=== PATIENT | male | born 1980 | race Caucasian/White ===

== ENCOUNTER 2016-10-21 16:18 | Inpatient (IN) | payer MEDICARE, MEDICAID, OTHER ==
[2016-10-21] MEDS ORDERED: Sodium Chloride 0.9% 1,000 ML IV STA (17:45)
[2016-10-21 18:18] LABS: HEMATOCRIT 46.2 % (42.0-52.0); MEAN CELL VOLUME 80.2 fL (80.0-105.0); MEAN CORPUSCULAR HEMOGLOBIN 29.3 pg (25.0-35.0); MEAN CORPUSCULAR HGB CONC 36.6 g/dl (31.0-37.0); MEAN PLATELET VOLUME 12.3 fl (7.0-11.0); PLATELET COUNT 269 10^3/uL (120.0-450.0); WHITE BLOOD COUNT 21.8 10^3/ul (4.5-11.0)
[2016-10-21 18:23] LABS: ADD MANUAL DIFF? YES
[2016-10-21 18:27] LABS: ALB/GLOB RATIO 1.4 (1.1-1.8); BILIRUBIN,TOTAL 0.8 mg/dL (0.2-1.3); CALCIUM 9.9 mg/dL (8.4-10.5); TOTAL PROTEIN 8.5 g/dL (5.8-8.3)
[2016-10-21] MEDS ORDERED: Insulin Reg-MEDIUM-Coverage IV STA (18:45)
--- NOTE | 2016-10-21 19:03 | ED PDOC ---
Arrival/HPI - General Chief Complaint: GI Problem Time Seen by Provider: 10/21/16 17:32 Historian: Patient - History of Present Illness Narrative History of Present Illness (Text): 10/21/16 19:00 36yo male with PMHx IDDM present with complaint of generalized bodyache, nausea , vomiting x 3days. States he did not take one of his insulin today, because he was too weak to stand up. He denies abdominal pain, dizziness, chest pain, SOB, diarrhea, constipation, sick contact, any other complaint. Past Medical History - Provider Review Nursing Documentation Reviewed: Yes - Past History Past History: Non-Contributing - Infectious Disease Hx of Infectious Diseases: None - Tetanus Immunization Tetanus Immunization: Unknown - Cardiac Hx Hypertension: Yes - Pulmonary Hx Respiratory Disorders: No Hx Asthma: No Hx Bronchitis: No Hx Chronic Obstructive Pulmonary Disease (COPD): No Hx Emphysema: No - Neurological Hx Neurological Disorder: No Hx Alzheimer's Disease: No HX Cerebrovascular Accident: No Hx Dementia: No Hx Migraine: No Hx Parkinson's Disease: No Hx Seizures: No Hx Transient Ischemic Attacks (TIA): No - HEENT Hx HEENT Disorder: No Hx Blind: No Hx Cataracts: No Hx Deafness: No Hx Difficulty Chewing: No Hx Epistaxis: No Hx Glaucoma: No Hx Macular Degeneration: No - Renal Hx Renal Disorder: No Hx Renal Failure: No - Endocrine/Metabolic Hx Diabetes Mellitus Type 1: Yes Hx Diabetes Mellitus Type 2: Yes Hx Hyperthyroidism: No Hx Hypothyroidism: No - Hematological/Oncological Hx Blood Disorders: No Hx Anemia: No Hx Cancer: No Hx Hepatitis A: No Hx Hepatitis B: No Hx Hepatitis C: No - Integumentary Hx Dermatological Disorder: No Hx Basal Cell Carcinoma: No Hx Eczema: No Hx Melanoma: No Hx Psoriasis: No Hx Squamous Cell Carcinoma: No - Musculoskeletal/Rheumatological Hx Musculoskeletal Disorders: No Hx Arthritis: No - Gastrointestinal Hx Gastrointestinal Disorders: No Hx Crohn's Disease: No Hx Diverticulitis: No Hx Gastroesophageal Reflux: No Hx Gastrointestinal Ulcer: No Hx Liver Failure: No - Genitourinary/Gynecological Hx Genitourinary Disorders: No Hx Hematuria: No Hx Incontinence: No Hx Prostate Problems: No Hx Sexually Transmitted Diseases: No Hx Urinary Tract Infection: No - Psychiatric Hx Psychophysiologic Disorder: No Hx Depression: No Hx Emotional Abuse: No Hx Physical Abuse: No Hx Substance Use: Yes - Past Surgical History Past Surgical History: No Previous - Surgical History Hx Amputation: No Hx Appendectomy: No Hx Cardiac Catheterization: No Hx Cholecystectomy: No Hx Coronary Stent: No Hx Gastric Bypass Surgery: No Hx Hysterectomy: No Hx Joint Replacement: No Hx Kidney Transplant: No Hx Liver Transplant: No Hx Mastectomy: No Hx Open Heart Surgery: No Hx Orthopedic Surgery: No Hx Splenectomy: No Hx Valve Replacement: No - Anesthesia Hx Anesthesia: No Hx Anesthesia Reactions: No Hx Malignant Hyperthermia: No - Suicidal Assessment Feels Threatened In Home Enviroment: No Family/Social History - Physician Review Nursing Documentation Reviewed: Yes Family/Social History: Unknown Family HX Smoking Status: Heavy Smoker > 10 Cigarettes Daily Hx Alcohol Use: Yes Frequency of alcohol use: Socially Hx Substance Use: Yes Substance used: MARIJUANA Hx Substance Use Treatment: No Allergies/Home Meds Allergies/Adverse Reactions: Allergies No Known Allergies Allergy (Verified 09/24/14 18:43) Home Medications: Home Meds Medication Instructions Recorded Confirmed Aspirin 81 mg PO DAILY 06/16/13 10/22/14 Insulin Glargine,Hum.rec.anlog 30 units SC HS 06/16/13 10/22/14 [Lantus] Metformin HCl 1,000 mg PO BID 06/16/13 10/22/14 Insulin Human NPH/Reg [HumuLIN 25 units SC BID 07/28/14 10/22/14 70/30 (NPH/Reg)] Gabapentin [Gabapentin] 300 mg PO BID 10/22/14 10/22/14 Review of Systems - Physician Review All systems were reviewed & negative as marked: Yes - Review of Systems Constitutional: Fatigue Eyes: Normal ENT: Normal Respiratory: Normal Cardiovascular: Normal Gastrointestinal: Nausea, Vomiting. absent: Abdominal Pain, Constipation, Diarrhea Genitourinary Male: Normal Musculoskeletal: Normal Skin: Normal Neurological: Normal Endocrine: Normal Hemo/Lymphatic: Normal Psychiatric: Normal Physical Exam Vital Signs Reviewed: Yes Vital Signs Temp Pulse Resp BP Pulse Ox 10/21/16 21:40 72 17 150/88 98 10/21/16 19:20 64 16 136/66 100 10/21/16 18:39 82 18 145/89 97 10/21/16 18:00 82 20 141/77 97 10/21/16 17:10 97.7 F 103 H 18 165/100 H 100 Temperature: Afebrile Blood Pressure: Hypertensive Pulse: Tachycardic Respiratory Rate: Normal Appearance: Positive for: Non-Toxic, Comfortable, Ill-Appearing Pain Distress: None Mental Status: Positive for: Alert and Oriented X 3 - Systems Exam Head: Present: Atraumatic, Normocephalic Pupils: Present: PERRL Extroacular Muscles: Present: EOMI Conjunctiva: Present: Normal Mouth: Present: Moist Mucous Membranes Neck: Present: Normal Range of Motion Respiratory/Chest: Present: Clear to Auscultation, Good Air Exchange. No: Respiratory Distress, Accessory Muscle Use Cardiovascular: Present: Regular Rate and Rhythm, Normal S1, S2. No: Murmurs Abdomen: Present: Normal Bowel Sounds. No: Tenderness, Distention, Peritoneal Signs, Rebound, Guarding, McBurney's Point Tender, Rovsing's Sign Present Back: Present: Normal Inspection Upper Extremity: Present: Normal Inspection. No: Cyanosis, Edema Lower Extremity: Present: Normal Inspection. No: Edema Neurological: Present: GCS=15, CN II-XII Intact, Speech Normal Skin: Present: Warm, Dry, Normal Color. No: Rashes Psychiatric: Present: Alert, Oriented x 3, Normal Insight, Normal Concentration Medical Decision Making ED Course and Treatment: 10/22/16 03:25 PT presented for stated history. He was ill appearing in ED. Rapid flu was negative. He have hyperglycemia and a gap on the lab. He was hydrated and insulin was given. He have leukocytosis with a band and the source was not known. Bld culture pending. He was admitted for DKA and leukocytosis. Case was AKILAH Burciaga and he accepted pt to his service. Case was also AKILAH Montague and he saw pt in ED EKG Sinus rhythm @68bpm with no ST changes as read by me. Chest xray NAD - Lab Interpretations Lab Results: 10/21/16 18:00 10/21/16 18:00 Lab Results 10/21/16 20:00: Lactic Acid 2.2 H, Urine Color Straw, Urine Appearance Clear, Urine pH 6.0, Ur Specific [place] 1.015, Urine Protein Negative, Urine Glucose ( UA) >=1000, Urine Ketones >=80, Urine Blood Small H, Urine Nitrate Negative, Urine Bilirubin Negative, Urine Urobilinogen 0.2, Ur Leukocyte Esterase Negative , Urine RBC 2 - 5, Urine WBC 0 - 2, Ur Epithelial Cells 0 - 2, Urine Bacteria Small 03/20/17 19:20: Grp A Beta Strep Ag Negative 10/21/16 19:10: pCO2 18 L*, pO2 122.0 H, HCO3 6.9 L*, ABG pH 7.19 L*, ABG Total CO2 7.5 L, ABG O2 Saturation 99.5 H, ABG O2 Content 20.5, ABG Base Excess -19.0 L, ABG Hemoglobin 15.1, ABG Carboxyhemoglobin 2.3 H, POC ABG HHb (Measured) 0.5 , ABG Methemoglobin 1.4, ABG O2 Capacity 20.6, Hgb O2 Saturation 95.9, FiO2 21.0 10/21/16 18:00: WBC 21.8 H D, RBC 5.76, Hgb 16.9, Hct 46.2, MCV 80.2, MCH 29.3, MCHC 36.6, RDW 13.0, Plt Count 269, MPV 12.3 H, Neutrophils % (Manual) 86 H, Band Neutrophils % 4 H, Lymphocytes % (Manual) 4 L, Atypical Lymphs % 2 H, Monocytes % (Manual) 4, Platelet Evaluation Normal, Sodium 125 L, Potassium 6.2 H* D, Chloride 89 L, Carbon Dioxide 8 L D, Anion Gap 34 H, BUN 48 H, Creatinine 2.0 H, Est GFR ( Amer) 46, Est GFR (Non-Af Amer) 38, Random Glucose 548 H *, Calcium 9.9, Total Bilirubin 0.8, AST 25, ALT 27, Alkaline Phosphatase 147 H , Lactate Dehydrogenase 631, Total Creatine Kinase 129, Troponin I < 0.01, Total Protein 8.5 H, Albumin 4.9 H, Globulin 3.6, Albumin/Globulin Ratio 1.4, Influenza Typ A,B (EIA) Negative for flu a/b 10/21/16 00:15: PT 12.0 H, INR 1.11 H, APTT 26.9 - RAD Interpretation Radiology Orders: 10/21/16 19:09 CHEST PORTABLE [RAD] Stat - Medication Orders Current Medication Orders: Albuterol/Ipratropium (Duoneb 3 Mg/0.5 Mg (3 Ml) Ud) 3 ml IH [id number] MEGAN Stop: 10/29/16 02:01 Last Admin: 10/21/16 22:29 Dose: 3 ML Aspirin (Ecotrin) 81 mg PO DAILY [facility] Enoxaparin Sodium (Lovenox) 40 mg SC DAILY MEGAN PRN Reason: Protocol Last Admin: 10/22/16 00:39 Dose: 40 MG Protocol for PTT Monitoring Document 10/22/16 00:39 TAJ (Rec: 10/22/16 00:[address] [id number]) Protocol Protocol for PTT Monitoring Treatment adjusted per protocol (situation) Subcutaneous Administrations Document 10/22/16 00:39 TAJ (Rec: 10/22/16 00:[address] [facility] [address] [id number]) Injection Site MAR Injection Site Right Abdomen Charges for Administration # of Subcutaneous Administrations 1 Gabapentin (Neurontin) 300 mg PO BID [facility] Sodium Chloride (Sodium Chloride 0.9%) 1,000 mls @ 100 mls/hr IV .Q10H MEGAN Insulin Human Regular 100 (units/ Sodium Chloride) 100 mls @ 4 mls/hr IV .Q24H PRN; Protocol; 4 UNITS/HR PRN Reason: TITRATE PER PROTOCOL Last Titration: 10/22/16 02:42 Dose: 2 UNITS/HR Titration Intervention Document 10/22/16 02:42 TAJ (Rec: 10/22/16 02:[address] [address] [id number]) Titration Dosing Titration Dose 2 IV Rate 2 Intake/Decrease Decrease Piperacillin Sod/Tazobactam Sod (Zosyn 2.25 Gm In 0.9% 100 Ml) 100 mls @ 100 mls/hr IVPB Q6 [facility] PRN Reason: Protocol Stop: 10/28/16 00:01 Metoclopramide HCl (Reglan) 10 mg IVP ACHS [facility] Last Admin: 10/21/16 22:29 Dose: 10 MG IVP Administration Document 10/21/16 22:29 YP (Rec: 10/21/16 22:29 [id number] Charges for Administration # of IVP Administrations 1 Nicotine (Nicoderm Cq) 1 patch TD DAILY [facility] Ondansetron HCl (Zofran Inj) 4 mg IVP Q4H PRN PRN Reason: Nausea/Vomiting Pantoprazole Sodium (Protonix Inj) 40 mg IVP Q12 [facility] Last Admin: 10/21/16 22:29 Dose: 40 MG IVP Administration Document 10/21/16 22:29 YP (Rec: 10/21/16 22:29 [id number][facility] Charges for Administration # of IVP Administrations 1 Discontinued Medications Acetaminophen (Tylenol 325mg Tab) 650 mg PO STAT STA Stop: 10/21/16 19:59 Last Admin: 10/21/16 20:22 Dose: 650 MG MAR Pain/Vitals Document 10/21/16 20:22 YP (Rec: 10/21/16 20:22 [id number][facility] Pain Reassessment Is This A Pain ReAssessment? Yes Sleep Is patient sleeping during reassessment? No Presence of Pain Presence of Pain Yes Calcium Gluconate (Calcium Gluconate Iv) 1,000 mg IVP STAT STA Stop: 10/21/16 20:54 Last Admin: 10/21/16 21:22 Dose: 1,000 MG IVP Administration Document 10/21/16 21:22 YP (Rec: 10/21/16 21:22 [id number][facility] Charges for Administration # of IVP Administrations 1 Dextrose (Dextrose 50% Inj) Confirm Administered Dose 50 ml .ROUTE .STK-MED ONE Stop: 10/21/16 23:32 Last Admin: 10/21/16 23:41 Dose: Home Med (*Refrigerator Open) Confirm Administered Dose 1 unit XX .STK-MED ONE Stop: 10/21/16 19:26 Sodium Chloride (Sodium Chloride 0.9%) 1,000 mls @ 999 mls/hr IV .Q1H1M STA Stop: 10/21/16 18:45 Last Admin: 10/21/16 18:00 Dose: 999 MLS/HR eMAR Start Stop Document 10/21/16 18:00 SZA (Rec: 10/21/16 18:09 SZA [id number]) Intravenous Solution Start Date 10/21/16 Start Time 18:00 End Date 10/21/16 End time 19:00 Total Infusion Time 60 Sodium Chloride (Sodium Chloride 0.9%) 1,000 mls @ 999 mls/hr IV .Q1H1M MEGAN Stop: 10/22/16 02:00 Last Admin: 10/22/16 00:00 Dose: 999 MLS/HR eMAR Start Stop Document 10/22/16 00:00 TAJ (Rec: 10/22/16 00:42 TAJ [id number]) Intravenous Solution Start Date 10/22/16 Start Time 00:00 End Date 10/22/16 Insulin Human Regular 100 (units/ Sodium Chloride) 100 mls @ 0 mls/hr IV .Q0M PRN; Protocol; Per Protocol PRN Reason: TITRATE PER MD ORDER Sodium Chloride (Sodium Chloride 0.9%) 1,000 mls @ 150 mls/hr IV .Q6H40M [facility] Last Admin: 10/21/16 21:08 Dose: Piperacillin Sod/Tazobactam Sod (Zosyn 2.25 Gm In 0.9% 100 Ml) 100 mls @ 100 mls/hr IVPB Q6 MEGAN PRN Reason: Protocol Stop: 10/22/16 06:59 Insulin Human Regular 100 (units/ Sodium Chloride) 100 mls @ 4 mls/hr IV .Q24H PRN; Protocol; Per Protocol PRN Reason: TITRATE PER MD ORDER Insulin Human Regular (Humulin R Med) 10 units IV ONCE STA PRN Reason: Protocol Stop: 10/21/16 18:46 Last Admin: 10/21/16 19:15 Dose: Insulin Human Regular (Humulin R) Confirm Administered Dose 10 units .ROUTE .STK -MED ONE Stop: 10/21/16 19:09 Last Admin: 10/21/16 19:08 Dose: 10 UNITS Ketorolac Tromethamine (Toradol) 30 mg IVP STAT STA Stop: 10/21/16 17:47 Last Admin: 10/21/16 18:09 Dose: 30 MG IVP Administration Document 10/21/16 18:09 SRAVANTHI (Rec: 10/21/16 18:10 [id number]) Charges for Administration # of IVP Administrations 1 Ondansetron HCl (Zofran Inj) 4 mg IVP Q6H PRN PRN Reason: Nausea/Vomiting Pantoprazole Sodium (Protonix Inj) 40 mg IVP DAILY [facility] Sodium Bicarbonate (Sodium Bicarbonate (8.4%) 50 Meq Syringe) 50 meq IVP STAT STA Stop: 10/21/16 20:54 Last Admin: 10/21/16 21:21 Dose: 50 MEQ IVP Administration Document 10/21/16 21:21 YP (Rec: 10/21/16 21:22 YP [id number]) Charges for Administration # of IVP Administrations 1 Sodium Polystyrene Sulfonate (Kayexalate Oral Susp) 30 gm PO STAT STA Stop: 10/21/16 20:53 Last Admin: 10/21/16 21:22 Dose: 30 GM Disposition/Present on Arrival - Present on Arrival Any Indicators Present on Arrival: No History of DVT/PE: No History of Uncontrolled Diabetes: Yes Urinary Catheter: No History of Decub. Ulcer: No History Surgical Site Infection Following: None - Disposition Have Diagnosis and Disposition been Completed?: Yes Diagnosis: Leukocytosis, Diabetic ketoacidosis, Hyperglycemia Disposition: HOSPITALIZED Disposition Time: 21:00 Condition: GUARDED
[2016-10-21 19:04] LABS: POTASSIUM 6.2 mmol/L (3.6-5.0)
[2016-10-21] MEDS ORDERED: Insulin Regular 1 UNITS/0.01 ML ML ONE (19:08)
[2016-10-21 19:20] LABS: ATYPICAL LYMPHOCYTE 2 % (0.0-0.0); BAND 4 % (0-2); NEUTROPHIL 86 % (50.0-70.0); PLATELET ESTIMATE NORMAL (NORMAL)
[2016-10-21 19:21] LABS: ARTERIAL BLOOD GAS O2 CAPACITY 20.6 mL/dl (16-24); ARTERIAL BLOOD GAS O2 CONTENT 20.5 ML/dl (15-23); ARTERIAL BLOOD HGB O2 SAT 95.9 % (95.0-98.0); CARBOXYHEMOGLOBIN 2.3 % (0.5-1.5); HHB 0.5 % (0-5); METHEMOGLOBIN 1.4 % (0.0-3.0)
[2016-10-21 19:26] LABS: ARTERIAL BLOOD GAS PH 7.19 (7.35-7.45)
[2016-10-21 19:27] LABS: ARTERIAL BLOOD GAS HCO3 6.9 mmol/L (21-28)
--- NOTE | 2016-10-21 20:24 | CP.PCM.CON ---
<Dave Mccormick - Last Filed: 10/22/16 02:04> History of Present Illness - History of Present Illness History of Present Illness: ICU Consult Note for Dr. Clari Mccormick, PGY-1 Internal Medicine CC: Malaise, body aches, weakness, and N/V x3 days HPI: This is a 36 yo M with PMH of DM1 (dx at age 29), HTN, Diabetic neuropathy, and hx of DKA who presents with 3x days of generalized malaise, weakness, nausea/emesis, diaphoresis, lightheadedness, and chills. Per patient , he awoke feeling like this three mornings ago, and since that time has not improved at all. He admits to ~10 episodes of emesis since that time, all non- bloody non-bilious, and his only PO intake during this time has been some water and 1x small glass of milk. He also complains of mild shortness of breath regardless of exertion, and some midline-left sided burning chest pain present even when not vomiting. Denies radiation of chest pain into arm/jaw/neck. Denies syncope, but admits to near syncope. Denies altered mental status or loss of memory. 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 He states his sugars at home (checks 1-2x daily) have been between 200-300 during this time. Otherwise compliant with his home regimen. Has been [place] [facility] [place], in Jun [place]. Home insulin regimen: Lantus 25-30u HS, Humalin 70/30 insulin 20-25 BID with meals. Previously also on Metformin 1000mg BID (stopped by PCP) PMH: As above PSH: denies FHx: denies SHx: active tobacco user (cigarettes 1/2 ppd x ~30yrs), active marijuana user ( variable usage, up to daily, last used 1-2 wks prior), admits social EtOH ( denies binging episode within last 4 weeks) PMD: Dr. Harmon Review of Systems - Constitutional Constitutional: Chills, Excessive Sweating, Fatigue, Lethargy, Weakness. absent : Fever - EENT Eyes: absent: Blurred Vision, Change in Vision, Loss of Vision Ears: Dizziness Nose/Mouth/Throat: Sore Throat (2/2 vomiting episodes). absent: Dysphagia - Cardiovascular Cardiovascular: Chest Pain (midline to left sided, burning sensation, present even when not vomiting), Dyspnea (mild shortness of breath, described as "just can't catch my breath," present even when not exerting self), Lightheadedness. absent: Pain Radiating to Arm/Neck/Jaw, Syncope Additional comments: Near-syncope - Respiratory Respiratory: Dyspnea (mild shortness of breath, described as "just can't catch my breath," present even when not exerting self). absent: Cough, Hemoptysis, Pain on Inspiration - Gastrointestinal Gastrointestinal: Abdominal Pain (epigastric area, constant, worse with vomiting ), Nausea, Vomiting (~10 episodes over 3 days, all non-bilious non-bloody). absent: Coffee Ground Emesis, Constipation, Diarrhea, Hematemesis, Hematochezia , Melena - Genitourinary Genitourinary: absent: Difficulty Urinating, Flank Pain, Hematuria - Musculoskeletal Musculoskeletal: Muscle Weakness (generalized weakness). absent: Back Pain, Neck Pain, Numbness, Radiating Pain into Limb, Stiffness - Integumentary Integumentary: absent: Bleeding Lesions, Pruritus, Rash - Neurological Neurological: Dizziness, Focal Weakness, Headaches, Weakness. absent: Numbness , Loss of Vision, Syncope, Other Visual Disturbances Additional comments: near-syncope - Psychiatric Psychiatric: Anxiety - Endocrine Endocrine: Fatigue. absent: Palpitations Past Patient History - Infectious Disease Hx of Infectious Diseases: None - Tetanus Immunizations Tetanus Immunization: Unknown - Past Social History Smoking Status: Heavy Smoker > 10 Cigarettes Daily - CARDIAC Hx Hypertension: Yes - PULMONARY Hx Respiratory Disorders: No Hx Asthma: No Hx Bronchitis: No Hx Chronic Obstructive Pulmonary Disease (COPD): No Hx Emphysema: No - NEUROLOGICAL Hx Neurological Disorder: No Hx Alzheimer's Disease: No HX Cerebrovascular Accident: No Hx Dementia: No Hx Migraine: No Hx Parkinson's Disease: No Hx Seizures: No Hx Transient Ischemic Attacks (TIA): No - HEENT Hx HEENT Problems: No Hx Blind: No Hx Cataracts: No Hx Deafness: No Hx Difficulty Chewing: No Hx Epistaxis: No Hx Glaucoma: No Hx Macular Degeneration: No - RENAL Hx Chronic Kidney Disease: No Hx Renal Failure: No - ENDOCRINE/METABOLIC Hx Diabetes Mellitus Type 1: Yes Hx Diabetes Mellitus Type 2: Yes Hx Hyperthyroidism: No Hx Hypothyroidism: No - HEMATOLOGICAL/ONCOLOGICAL Hx Blood Disorders: No Hx Anemia: No Hx Cancer: No Hx Hepatitis A: No Hx Hepatitis B: No Hx Hepatitis C: No - INTEGUMENTARY Hx Dermatological Problems: No Hx Basil Cell: No Hx Eczema: No Hx Melanoma: No Hx Psoriasis: No Hx Squamous Cell: No - MUSCULOSKELETAL/RHEUMATOLOGICAL Hx Musculoskeletal Disorders: No Hx Arthritis: No - GASTROINTESTINAL Hx Gastrointestinal Disorders: No Hx Crohn's Disease: No Hx Diverticulitis: No Hx Gastroesophageal Reflux: No Hx Liver Failure: No - GENITOURINARY/GYNECOLOGICAL Hx Genitourinary Disorders: No Hx Hematuria: No Hx Incontinence: No Hx Prostate Problems: No Hx Sexually Transmitted Disorders: No Hx Urinary Tract Infection: No - PSYCHIATRIC Hx Psychophysiologic Disorder: No Hx Depression: No Hx Emotional Abuse: No Hx Physical Abuse: No Hx Substance Use: Yes - SURGICAL HISTORY Hx Amputation: No Hx Appendectomy: No Hx Cardiac Catheterization: No Hx Cholecystectomy: No Hx Coronary Stent: No Hx Gastric Bypass Surgery: No Hx Hysterectomy: No Hx Joint Replacement: No Hx Kidney Transplant: No Hx Liver Transplant: No Hx Mastectomy: No Hx Open Heart Surgery: No Hx Orthopedic Surgery: No Hx Splenectomy: No Hx Valve Replacement: No - ANESTHESIA Hx Anesthesia: No Hx Anesthesia Reactions: No Hx Malignant Hyperthermia: No Meds Allergies/Adverse Reactions: Allergies Allergy/AdvReac Type Severity Reaction Status Date / Time No Known Allergies Allergy Verified 09/24/14 18:43 Physical Exam - Constitutional Appears: Non-toxic, No Acute Distress Additional comments: lethargic/somnolent - Head Exam Head Exam: ATRAUMATIC, NORMAL INSPECTION, NORMOCEPHALIC - Eye Exam Eye Exam: EOMI, Normal appearance, PERRL. absent: Conjunctival injection, Scleral icterus Pupil Exam: NORMAL ACCOMODATION, PERRL. absent: Fixed, Irregular, Unequal - ENT Exam ENT Exam: Mucous Membranes Moist. absent: Mucous Membranes Dry Additional comments: uvula midline, palate raises equally - Neck Exam Neck exam: Positive for: Full Rom. Negative for: Tenderness, Thyromegaly - Respiratory Exam Respiratory Exam: Clear to Auscultation Bilateral, NORMAL BREATHING PATTERN. absent: Accessory Muscle Use, Chest Wall Tenderness, Decreased Breath Sounds, Rales - Cardiovascular Exam Cardiovascular Exam: REGULAR RHYTHM, RRR, +S1, +S2. absent: Bradycardia, Tachycardia, Clicks, Irregular Rhythm, +S4, Systolic Murmur - GI/Abdominal Exam GI & Abdominal Exam: Normal Bowel Sounds, Soft, Tenderness (mild diffuse tenderness to palpation, moderate tenderness to palpation epigastrically). absent: Diminished Bowel Sounds, Hyperactive Bowel Sounds - Rectal Exam Rectal Exam: Deferred - Extremities Exam Extremities exam: Positive for: full ROM, normal capillary refill, normal inspection, pedal pulses present. Negative for: calf tenderness, joint swelling , pedal edema, tenderness - Back Exam Back exam: absent: CVA tenderness (L), CVA tenderness (R) - Neurological Exam Neurological exam: Alert, Oriented x3 - Psychiatric Exam Psychiatric exam: Normal Affect, Normal Mood - Skin Skin Exam: Dry, Intact, Normal Color, Warm Results - Vital Signs Recent Vital Signs: Last Vital Signs Temp 97.7 F 10/21/16 17:10 Pulse 64 10/21/16 19:20 Resp 16 10/21/16 19:20 BP 136/66 10/21/16 19:20 Pulse Ox 100 10/21/16 19:20 - Labs Result Diagrams: 10/21/16 18:00 10/22/16 00:20 Labs: Laboratory Results - last 24 hr 10/21/16 10/21/16 10/21/16 18:00 19:10 19:20 WBC 21.8 H D RBC 5.76 Hgb 16.9 Hct 46.2 MCV 80.2 MCH 29.3 MCHC 36.6 RDW 13.0 Plt Count 269 MPV 12.3 H Neutrophils % (Manual) 86 H Band Neutrophils % 4 H Lymphocytes % (Manual) 4 L Atypical Lymphs % 2 H Monocytes % (Manual) 4 Platelet Evaluation Normal pCO2 18 L* pO2 122.0 H HCO3 6.9 L* ABG pH 7.19 L* ABG Total CO2 7.5 L ABG O2 Saturation 99.5 H ABG O2 Content 20.5 ABG Base Excess -19.0 L ABG Hemoglobin 15.1 ABG Carboxyhemoglobin 2.3 H POC ABG HHb (Measured) 0.5 ABG Methemoglobin 1.4 ABG O2 Capacity 20.6 Hgb O2 Saturation 95.9 FiO2 21.0 Sodium 125 L Potassium 6.2 H* D Chloride 89 L Carbon Dioxide 8 L D Anion Gap 34 H BUN 48 H Creatinine 2.0 H Est GFR ( Amer) 46 Est GFR (Non-Af Amer) 38 Random Glucose 548 H* Calcium 9.9 Total Bilirubin 0.8 AST 25 ALT 27 Alkaline Phosphatase 147 H Total Protein 8.5 H Albumin 4.9 H Globulin 3.6 Albumin/Globulin Ratio 1.4 Influenza Typ A,B (EIA) Negative for flu a/b Grp A Beta Strep Ag Negative Assessment & Plan - Assessment and Plan (Free Text) Assessment: This is a 36 yo M with PMH of DM1 (dx at age 29), HTN, Diabetic neuropathy, and hx of DKA who presents with 3x days of generalized malaise, weakness, nausea/emesis, diaphoresis, lightheadedness, and chills. He is being admitted to the ICU for DKA with anion gap of 28. Plan: Neuro: -awake, alert, oriented x3 (self, location, year) -lethargic, may be 2/2 DKA vs chronic marijuana use, urine drug screen ordered -continue to monitor -continue home gabapentin for diabetic neuropathy -maintain normothermia Cardio: -RRR on exam, EKG in the ED 67 with NSR with marked sinus arrhythmia (early repolarization) -Repeat EKG in AM, trops trending (#1 negative) -Peaked T-waves on V2-V6, likely 2/2 hyperkalemia of 6.2 -Kayexelate 30mg x1 and Calcium gluconate IVP x1 given, K will further resolve with treatment of DKA -Maintain MAP > 65 -Aggressive IV fluids for DKA, received 5L NS open, continue on 150cc/hr Pulm: -non-labored breathing, satting > 95% on room air -duonebs q6 anabella -ABG notable for pCO2 18, pO2 122.0, HCO3 6.9, pH 7.19; bicarb 50mEq IVP x1 given -Procal ordered -CXR obtained in ED, no infiltrate observed GI: -NPO -Protonix IV 40mg daily -Zofran 4mg IV q6 prn for N/V, Reglan 10mg IVP ACHS Renal: -Cr 2.0, baseline is 0.9-1.1 per charting, likely SAMANTHA 2/2 dehydration given BUN 48 -Monitor and replete electrolytes as needed -Hyperkalemia likely 2/2 non-compliance with part of insulin regimen/DKA (ran out of insulin), given Kayexelate in ED, insulin for DKA will improve K as well -Avoid nephrotoxic medications where reasonable Endo: -DKA, Anion gap of 28 on admission, blood glucose 548 on admission -Insulin drip started, aggressive IV fluids -Endo consulted, appreciate any recs -A1c ordered -Accuchecks q1, will switch to D5 1/2NS after 2 consecutive fingersticks < 250 -BMPs q4, when anion gap closes, will calculate total insulin requirement and transition to long acting insulin with AC coverage and d/c insulin drip ID: -Leukocytosis of 21.8 in ED, afebrile -ID consulted, appreciate any recs -Started on Zosyn as per ID -pending blood, urine, and throat cultures, pending MRSA screen Dispo: Admitted to the ICU for management of DKA with anion gap of 28, pending closure of gap FEN: NPO, NS 150cc/hr Access: Peripheral IV Consults: Endo, ID Ppx: Protonix for GI, SCDs for DVT Patient seen, reviewed, and discussed with attending, Dr. Montague. - Date & Time Date: 10/22/16 Time: 02:33 <Clifford Montague Q - Last Filed: 10/22/16 04:53> Meds - Medications Medications: Current Medications Albuterol/Ipratropium (Duoneb 3 Mg/0.5 Mg (3 Ml) Ud) 3 ml IH [id number] [facility] Stop: 10/29/16 02:01 Last Admin: 10/21/16 22:29 Dose: 3 ml Aspirin (Ecotrin) 81 mg PO DAILY ANABELLA Enoxaparin Sodium (Lovenox) 40 mg SC DAILY ANABELLA PRN Reason: Protocol Last Admin: 10/22/16 00:39 Dose: 40 mg Gabapentin (Neurontin) 300 mg PO BID [facility] Insulin Human Regular 100 (units/ Sodium Chloride) 100 mls @ 4 mls/hr IV .Q24H PRN; Protocol; 4 UNITS/HR PRN Reason: TITRATE PER PROTOCOL Last Titration: 10/22/16 03:40 Dose: 2 units/hr Piperacillin Sod/Tazobactam Sod (Zosyn 2.25 Gm In 0.9% 100 Ml) 100 mls @ 100 mls/hr IVPB Q6 ANABELLA PRN Reason: Protocol Stop: 10/28/16 00:01 Dextrose/Sodium Chloride (Dextrose 5%/0.45% Ns 1000 Ml) 1,000 mls @ 150 mls/hr IV .Q6H40M [facility] Metoclopramide HCl (Reglan) 10 mg IVP ACHS [facility] Last Admin: 10/21/16 22:29 Dose: 10 mg Nicotine (Nicoderm Cq) 1 patch TD DAILY [facility] Ondansetron HCl (Zofran Inj) 4 mg IVP Q4H PRN PRN Reason: Nausea/Vomiting Pantoprazole Sodium (Protonix Inj) 40 mg IVP Q12 ANABELLA Last Admin: 10/21/16 22:29 Dose: 40 mg Results - Vital Signs Recent Vital Signs: Last Vital Signs Temp 98.1 F 10/22/16 00:03 Pulse 86 10/22/16 03:10 Resp 23 10/22/16 03:10 BP 150/88 10/21/16 21:40 Pulse Ox 97 10/22/16 03:10 - Labs Result Diagrams: 10/21/16 18:00 10/22/16 00:20 Labs: Laboratory Results - last 24 hr 10/21/16 10/21/16 10/21/16 21:16 22:48 23:21 Sodium Potassium Chloride Carbon Dioxide Anion Gap BUN Creatinine Est GFR ( Amer) Est GFR (Non-Af Amer) POC Glucose (mg/dL) 359 H 346 H Random Glucose Uric Acid Calcium Triglycerides Cholesterol LDL Cholesterol Direct HDL Cholesterol Free T4 Thyroxine (T4) TSH 3rd Generation Urine Opiates Screen Positive H Urine Methadone Screen Negative Ur Barbiturates Screen Negative Ur Phencyclidine Scrn Negative Ur Amphetamines Screen Negative U Benzodiazepines Scrn Negative U Oth Cocaine Metabols Negative U Cannabinoids Screen Negative 10/21/16 10/22/16 10/22/16 23:59 00:20 00:27 Sodium 134 Potassium 4.2 Chloride 100 Carbon Dioxide 15 L Anion Gap 23 H BUN 38 H Creatinine 1.4 Est GFR ( Amer) > 60 Est GFR (Non-Af Amer) 57 POC Glucose (mg/dL) 266 H Random Glucose 306 H* D Uric Acid 12.0 H Calcium 9.0 Triglycerides 449 H Cholesterol 188 LDL Cholesterol Direct 72 HDL Cholesterol 43 Free T4 0.91 Thyroxine (T4) 4.0 L TSH 3rd Generation 0.86 Urine Opiates Screen Urine Methadone Screen Ur Barbiturates Screen Ur Phencyclidine Scrn Ur Amphetamines Screen U Benzodiazepines Scrn U Oth Cocaine Metabols U Cannabinoids Screen 10/22/16 10/22/16 10/22/16 01:35 02:39 03:39 Sodium Potassium Chloride Carbon Dioxide Anion Gap BUN Creatinine Est GFR ( Amer) Est GFR (Non-Af Amer) POC Glucose (mg/dL) 264 H 220 H 210 H Random Glucose Uric Acid Calcium Triglycerides Cholesterol LDL Cholesterol Direct HDL Cholesterol Free T4 Thyroxine (T4) TSH 3rd Generation Urine Opiates Screen Urine Methadone Screen Ur Barbiturates Screen Ur Phencyclidine Scrn Ur Amphetamines Screen U Benzodiazepines Scrn U Oth Cocaine Metabols U Cannabinoids Screen Attending/Attestation - Attestation I have personally seen and examined this patient.: Yes I have fully participated in the care of the patient.: Yes I have reviewed all pertinent clinical information: Yes Notes (Text): 10/22/16 04:51 I agree with the above note and exam by Dr. Mccormick with the addition of the followin36 y/o male with a PMHx DM presented with lethargy and malaise, found to be in DKA. No clear source or inciting event noted as of yet; IVF changed overnight to D51/2NS due to controlled FSBS <250; will check his next BMP and decide if he 's ready to transition to long-acting insulin + ISS or continue on the Insulin drip. Patient is comfortable and in the ICU now. Case discussed with ISAIAS Bermudez all labs and images reviewed personally thus far (CT CHEST/ABD/PELVIS did not reveal any ominous findings; ileus noted on CT Abd) total time of care: 45 minutes
[2016-10-21] MEDS ORDERED: Sod Polystyrene Sulf 15 gm/60 ml Oral Susp PO STA (20:52)
[2016-10-21] MEDS ORDERED: Sodium Bicarbonate (8.4%) 50 Meq Syringe IVP STA (20:53)
[2016-10-21] MEDS ORDERED: Insulin Regular 100 UNITS in Sodium Chloride 0.9% 99 ML IV PRN ×2 (20:55→22:40)
[2016-10-21] MEDS ORDERED: Sodium Chloride 0.9% 1,000 ML IV SCH (21:00)
[2016-10-21] MEDS: Sodium Chloride 0.9% 1,000 ML IV SCH (21:07)
[2016-10-21 21:13] LABS: URINE BILIRUBIN NEGATIVE (NEGATIVE); URINE BLOOD SMALL (NEGATIVE); URINE GLUCOSE (UA) >=1000 mg/dL (NEGATIVE); URINE KETONE >=80 mg/dL (NEGATIVE); URINE LEUKOCYTE ESTERASE NEGATIVE Leu/uL (NEGATIVE); URINE PROTEIN NEGATIVE mg/dL (<30 mg/dL); URINE UROBILINOGEN 0.2 E.U./dL (<1 E.U./dL)
[2016-10-21 21:19] LABS: URINE APPEARANCE CLEAR (CLEAR); URINE COLOR STRAW (YELLOW)
[2016-10-21 21:38] LABS: URINE BACTERIA SMALL (NEG); URINE EPITHELIAL CELLS 0 - 2 /hpf (0-5); URINE WBC 0 - 2 /hpf (0-6)
[2016-10-21 21:42] LABS: TROPONIN I < 0.01 ng/mL
[2016-10-21] MEDS: Albuterol-Ipratrop 3 mg / 0.5 (3 ml) UD IH SCH (22:29)
[2016-10-21] MEDS ORDERED: Dextrose 50% SYRINGE Inj (50 ml) ONE (23:31)
--- NOTE | 2016-10-21 23:39 | CT ---
EXAM: CT Abdomen and Pelvis Without Intravenous Contrast. CLINICAL HISTORY: 36 years old, male; Signs and symptoms; Fever; Shortness of breath; Additional info: Leucocytosis/? /sepsis/dka TECHNIQUE: Axial computed tomography images of the abdomen and pelvis without intravenous contrast. This CT exam was performed using one or more of the following dose reduction techniques: automated exposure control, adjustment of the mA and/or kV according to patient size, and/or use of iterative reconstruction technique. Coronal and sagittal reformatted images were created and reviewed. COMPARISON: There are no prior studies for comparison. FINDINGS: Artifacts: Streak artifact degrades image quality.Motion artifact degrades image quality. Limitations: Lack of intravenous contrast limits evaluation of solid viscera and bowel. Lower thorax: Deferred to following report for chest findings ABDOMEN: Liver: unremarkable Gallbladder and bile ducts: unremarkable Pancreas: unremarkable Spleen: Spleen is unremarkable. There is an accessory spleen in the left upper quadrant. Adrenals: There is bilateral adrenal thickening left greater than right Kidneys and ureters: unremarkable Stomach and bowel: There is a small hiatal hernia. Stomach is only partially distended. Rotation is normal. Streak and motion limits evaluation of bowel. Small bowel is mildly distended with fluid and air. Streak and motion limited evaluation of the ileocecal region. There is moderate stool and air in the colon. There are scattered diverticula. Appendix: See stomach and bowel PELVIS: Bladder: unremarkable Reproductive: Seminal vesicles and prostate are unremarkable. ABDOMEN and PELVIS: Intraperitoneal space: There is no free air or free fluid. Bones/joints: There are degenerative changes in the osseus structures. There is a small bone island in the left ilium. There is a small bone island in the sacrum. Soft tissues: unremarkable Vasculature: There is minimal atherosclerotic calcification in the aorta Lymph nodes: There is no pathologic adenopathy. IMPRESSION: Limited evaluation of bowel do to streak and motion, mildly distended small bowel more suggestive of ileus than obstruction; limited evaluation of solid viscera 3, motion and might of intravenous contrast no definite solid visceral abnormality identified EXAM: CT Chest Without Intravenous Contrast. CLINICAL HISTORY: 36 years old, male; Signs and symptoms; Fever; Shortness of breath; Additional info: Leucocytosis/? /sepsis/dka TECHNIQUE: Axial computed tomography images of the chest without intravenous contrast. This CT exam was performed using one or more of the following dose reduction techniques: automated exposure control, adjustment of the mA and/or kV according to patient size, and/or use of iterative reconstruction technique. Coronal and sagittal reformatted images were created and reviewed. EXAM DATE/TIME: 10/21/2016 8:57 PM COMPARISON: There are no prior studies for comparison. FINDINGS: Artifacts: Motion artifact degrades image quality. Streak artifact degrades image quality. Lungs and pleural spaces: Trachea and main bronchi are patent. There are multiple small blebs at the right apex. There is minimal dependent atelectasis. There is small granulomas at the left apex. There is minimal scarring in the periphery of the left upper lobe. There are no effusions. Heart and vasculature: Heart size is normal. There is fluid in the pericardial recesses.Aorta and main pulmonary artery are normal in caliber. Mediastinum: The esophagus is unremarkable. There is a small hiatal hernia There are no pathologically enlarged mediastinal nodes. Brenda are not optimally evaluated without contrast material. Thyroid: Thyroid is not optimally demonstrated. Bones/joints: There are no acute osseous abnormalities Soft tissues: unremarkable Upper abdomen: Refer to prior report for abdominal findings IMPRESSION: No acute disease in the chest
[2016-10-22] MEDS ORDERED: Piperacillin/Tazobact 2.25gm 100 ML IVPB SCH
[2016-10-22] MEDS: Sodium Chloride 0.9% 1,000 ML IV SCH
[2016-10-22] MEDS: Enoxaparin 40 mg Syringe SC SCH ×2 (00:39→09:11)
[2016-10-22 00:57] LABS: INR 1.11 (0.93-1.08); PARTIAL THROMBOPLASTIN TIME 26.9 Seconds (23.7-30.8)
[2016-10-22 00:58] LABS: FREE T4 0.91 ng/dL (0.78-2.19)
--- NOTE | 2016-10-22 01:06 | HP ---
The patient is a 36-year-old male who presented to the Emergency Room with 3-4 day history of nausea, vomiting, polyuria, polydipsia, with diffuse body aches, with elevated blood sugar. Thirteen-system review was done. Pertinent positive and negative. The patient complains of generalized body aches, nausea, vomiting for 3 days, started Thursday 10/19. The patient has not been taking his insulin to day. The patient found to be very weak and tired and fatigued for the last couple of days. CODE STATUS: Full code. LIVING WILL AND ADVANCED DIRECTIVE: None. ALLERGIES: None. HEIGHT: 5 feet 10. WEIGHT: 154. BMI: 22.1. ALLERGIES: None. HOME MEDICATIONS: 1. Metformin 1000 mg twice a day. 2. Insulin 70/30, 25 units twice a day. 3. Lantus 30 units at bedtime. 4. Neurontin 300 mg twice a day. 5. Vasotec 2.5 mg daily. 6. Aspirin 81 mg daily. SOCIAL HISTORY: Positive for smoking. Positive for alcohol. Positive for drug use. FAMILY HISTORY: Positive for diabetes, hypertension in both sides of the family. PAST MEDICAL AND SURGICAL HISTORY: The patient's past medical, surgical history is as follows: Hist ory of hypertension, history of insulin-requiring diabetes mellitus, history of diabetic neuropathy, history of drug abuse, history of transaminitis. The patient's past medical history is significant f or dyslipidemia, history of hypertension, history of alcohol use, substance abuse, history of nicotin e dependence. Past medical history is also significant for history of leukocytosis, history of granu locytosis, history of diabetic ketoacidosis, history of uncontrolled insulin-requiring diabetes melli tus, history of transaminitis, history of severe hypertriglyceridemia and hypercholesterolemia, histo ry of possible poor compliance, history of uncontrolled diabetes mellitus with hyperglycemia, history of cocaine use in the past. Past medical history is significant for history of left 9th rib fractur e. Past medical history is significant for left ventricular ejection fraction of 70% on echo done in 2012, history of normal echocardiogram, history of questionable incomplete right bundle branch block versus right ventricular conduction delay. The patient's past medical history is also significant f or history of type 1 insulin-requiring diabetes mellitus, history of hypertension, dyslipidemia, hist ory of noncompliance, history of diabetic ketoacidosis, history of poor compliance in the past, histo ry of diabetic ketoacidosis, history of nicotine, alcohol and drug abuse. PHYSICAL EXAMINATION: The patient is seen in stretcher #6 in the Emergency Room. The patient is lyi ng in the bed. VITAL SIGNS: T-max 97.7. Heart rate 103, 82, 74, 62. Blood pressure ranging from 165/100, 141/77, 150/88, 136/66. Respirations 16-20. O2 sat 97%-100%. HEAD: Normocephalic, atraumatic. HEENT: Shows dry oral mucosa. [place] conjunctivae. No neck rigidity. CHEST: Kyphosis. LUNGS: Shows occasional rhonchi. CARDIOVASCULAR: S1, S2, regular rhythm. ABDOMEN: Soft, positive bowel sounds. Mild epigastric tenderness. No costovertebral angle tenderne ss noted. GENITALIA: Male. RECTAL: Deferred. EXTREMITIES: Shows no pitting edema, no calf tenderness, no Homans signs. VASCULAR: Palpable pulses. NEUROLOGIC: The patient is alert, awake, oriented x 3. Cranial nerves II-XII intact. Gait examinat ion not tested. PSYCHIATRIC: Negative for anxiety, depression. Negative for suicidal or homicidal ideation. DIAGNOSTICS: WBC 22,000. Hemoglobin and hematocrit 17 and 6.2. Granulocytes 86, 4 bands. ABG: pH of 7.19, pCO2 of 18, pO2 of 112, bicarbonate 7, saturation of 99.5. Sodium 125, potassium 6.2, whic h is ____ hemolyzed, chloride 89, CO2 of 8, anion gap 34, BUN 48, creatinine 2.0, GFR 46, random gluc ose 548, point of contact glucose 359. Alkaline phos 147, troponin 0.01. LDH and CPK negative. Tot al protein 8.5. Urine pH 6.0, specific gravity 1.015, greater than 1000 glucose, 80 ketones, small b lood, small bacteria. Influenza and group B strep negative. Chest x-ray was reviewed, which shows c lear lung phipps at present. TREATMENT IN THE EMERGENCY ROOM: The patient was seen in the Emergency Room by the physician mayuri hoff. The patient was given IV fluid wide open. The patient was treated for hyperkalemia. The patien t was given Toradol 30 mg for body aches and pain. The patient was advised to be admitted to intensi ve care unit. IMPRESSION AND PLAN: A 36-year-old male with history of insulin-requiring diabetes mellitus, hyperte nsion, dyslipidemia, history of noncompliance, came to the Emergency Room with polyuria, polydipsia, nausea and vomiting for the last 3-4 days. IMPRESSION AND PLAN: 1. Diabetic ketoacidosis with increased anion gap metabolic acidosis. 2. Questionable sepsis versus systemic inflammatory response syndrome with leukocytosis, granulocyto sis and bandemia. 3. Transient uncontrolled hypertension. 4. Tachycardia. 5. Leukocytosis with granulocytosis and bandemia. 6. Increased anion gap metabolic acidosis. 7. Acute kidney injury and acute renal failure. 8. Non-hemolyzed hyperkalemia. 9. Hypochloremic hyponatremia. 10. Uncontrolled insulin-requiring diabetes mellitus with hyperglycemia. 11. Glycosuria, ketonuria and microscopic hematuria, bacteriuria. 12. History of insulin-requiring diabetes mellitus, history of diabetic neuropathy, history of hyper tension. PLAN: At this time, the patient has to be admitted to intensive care unit. The patient's lab work h as been ordered. Lipid panel has been ordered. Thyroid panel, serial labs, serial cardiac enzymes h ave been ordered. Serial CBCs has been ordered. Blood cultures, throat cultures, urine cultures ord ered. Current consultation, infectious disease and tower technician. Procalcitonin level ordered. T he patient has been treated for hyperkalemia. The patient has been started on wide open IV fluid elise uses, normal saline boluses. The patient has been started on DuoNeb nebulizer, Ecotrin 81 daily. Th e patient received insulin 10 units IV dose and the patient was started on insulin drip. The patient was resumed on Neurontin 300 twice a day, Nicotine patch 21 mg daily, Protonix 40 IV q.12, Reglan 10 mg IV push a.c. and at bedtime. The patient was given an amp of bicarb. The patient has been given IV fluid wide open for 5 bags, 5 liters. The patient was given Tylenol, Zofran 4 IV q.4, Zosyn 2.25 grams IV q.6. The patient was given p.o. Kayexalate. CT of the chest, abdomen and pelvis has been ordered for evaluation of leukocytosis, bandemia. Repeat EKG ordered. The patient is presently on n .p.o. diet as per the crayon sawyer. The patient at present will be continued on above therapeutic int ervention. The patient is started on GI and DVT prophylaxis. The patient has been explained about t he details of his medical condition and diagnosis at length. The patient has been advised about his medical condition, diagnosis, need for hospitalization, which he acknowledges and understands. The p atient has been told about the consequences of DKA and consequences of his medical condition, which h kari acknowledged and understands. The patient is awaiting for an intensive care unit bed. The patient 's further management will be dependent upon the patient's clinical condition, hemodynamic status, an d as per the patient's response to therapeutic intervention, as per the patient's diagnostic test res ults and recommendation by all the physicians involved in the care of the patient. Time spent in the entire management and admission evaluation more than 1 hour and 55 minutes. Dictated and electronically signed, not read. Sanjeev Burciaga MD cc: [id number] TT: 10/21/2016 23:54:14 nm 10/22/2016 00:05:03
[2016-10-22 01:11] LABS: THYROID STIMULATING HORMONE 0.86 mIU/mL (0.46-4.68)
[2016-10-22 01:22] LABS: BLOOD UREA NITROGEN 38 mg/dL (7-21); CARBON DIOXIDE 15 mmol/L (21-33); CHLORIDE 100 mmol/L (98-107); CHOLESTEROL 188 mg/dL (130-200); GFR AFRICAN-AMERICAN > 60; POTASSIUM 4.2 mmol/L (3.6-5.0); SODIUM 134 mmol/L (132-148)
[2016-10-22 01:29] LABS: GLUCOSE,RANDOM 306 mg/dL (70-110)
[2016-10-22] MEDS: Albuterol-Ipratrop 3 mg / 0.5 (3 ml) UD IH SCH ×4 (01:40→20:08)
[2016-10-22] MEDS ORDERED: Sodium Chloride 0.9% 1,000 ML IV SCH (02:00)
[2016-10-22] MEDS ORDERED: Dextrose 5%/0.45% NS 1,000 ML IV SCH ×2 (03:45→16:45)
[2016-10-22] MEDS: Piperacillin/Tazobact 2.25gm 100 ML IVPB SCH ×3 (05:21→17:28)
[2016-10-22 07:44] VITALS: BMI 23.0
[2016-10-22 07:51] LABS: ADD MANUAL DIFF? NO
[2016-10-22 07:55] LABS: BASO # 0.01 K/mm3 (0.0-2.0); BASO % 0.1 % (0.0-3.0); EOS % 0.2 % (1.5-5.0); GRAN # 9.03 (1.4-6.5); GRAN % 78.6 % (50.0-68.0); HEMATOCRIT 36.3 % (42.0-52.0); LYMPH # 0.9 (1.2-3.4); LYMPH % 7.7 % (22.0-35.0); MEAN CELL VOLUME 76.1 fL (80.0-105.0); MEAN CORPUSCULAR HEMOGLOBIN 28.3 pg (25.0-35.0); MEAN CORPUSCULAR HGB CONC 37.2 g/dl (31.0-37.0); MEAN PLATELET VOLUME 11.6 fl (7.0-11.0); MONO # 1.5 (0.1-0.6); MONO % 13.4 % (1.0-6.0); PLATELET COUNT 217 10^3/uL (120.0-450.0); RED CELL DISTRIBUTION WIDTH 12.9 % (11.5-14.5); WHITE BLOOD COUNT 11.5 10^3/ul (4.5-11.0)
[2016-10-22 08:37] LABS: TROPONIN I 0.02 ng/mL
[2016-10-22 08:54] LABS: ALB/GLOB RATIO 1.3 (1.1-1.8); ALKALINE PHOSPHATASE 108 U/L (38-133); ALT/SGPT 24 U/L (7-56); AST/SGOT 21 U/L (15-59); BILIRUBIN,DIRECT 0.5 mg/dL (0.0-0.4); BILIRUBIN,TOTAL 0.8 mg/dL (0.2-1.3); BLOOD UREA NITROGEN 24 mg/dL (7-21); CALCIUM 8.8 mg/dL (8.4-10.5); CARBON DIOXIDE 22 mmol/L (21-33); CHLORIDE 105 mmol/L (98-107); GFR AFRICAN-AMERICAN > 60; GLUCOSE,RANDOM 172 mg/dL (70-110); MAGNESIUM 2.5 mg/dL (1.7-2.2); PHOSPHOROUS 2.2 mg/dL (2.5-4.5); SODIUM 138 mmol/L (132-148); TOTAL PROTEIN 6.8 g/dL (5.8-8.3)
[2016-10-22 09:05] LABS: POTASSIUM 2.7 mmol/L (3.6-5.0)
[2016-10-22] MEDS ORDERED: Potassium Chloride 20 mEq ER Tab PO STA ×2 (09:12→12:06)
[2016-10-22] MEDS ORDERED: Potassium Phosphate 3 mmol/ml Inj IV SCH (09:15)
[2016-10-22] MEDS ORDERED: Potassium Phosphate 15 MMOLE in Sodium Chloride 0.9% 250 ML IV ONE (09:30)
[2016-10-22] MEDS ORDERED: Potassium Chloride 20 mEq 100 ML IVPB SCH (09:30)
--- NOTE | 2016-10-22 09:45 | CON ---
DATE: 10/21/2016 LOCATION: [facility]U 128, room 3. HISTORY OF PRESENT ILLNESS: This is a 36-year-old male with known history of type 1 insulin-dependen t diabetes who apparently ran out of his rapid acting insulin with supervening hyperglycemic accelera tions, marked generalized body weakness, and associated dizziness and lightheadedness prompting this ER evaluation and subsequent admission. He has been to be evaluated to be in diabetic ketoacidosis a nd is currently on an insulin drip infusion in the ICU as noted. PAST MEDICAL HISTORY: As mentioned above, history of type 1 insulin-dependent diabetes diagnosed at the age of 29. He is currently on a combination of Lantus given as 30 units at bedtime with Humulin 70/30 given as 20-25 units twice a day before meals as noted. History of hypertension and dyslipidem ia, currently on enalapril given as 5 mg once daily; history of diabetic polyneuropathy and currently on Neurontin medications as noted. FAMILY HISTORY: Positive for diabetes and hypertension. SOCIAL HISTORY: The patient admits to nicotine dependence and consumes half a pack a day for many ye ars now with intermittent use of marijuana and social alcohol use. REVIEW OF SYSTEMS: As mentioned above, admits to progressive bouts of dizziness and lightheadedness, worse on the day of admission, with supervening generalized body weakness, easy fatigability and sub optimal energy level. No chest pains or palpitations but admits to occasional shortness of breath, e specially on exertion. His oral intake has been variable and suboptimal with nausea, dyspepsia and i ntractable vomiting episodes as noted with vague upper abdominal pain. Also admits to marked polyuri a, nocturia, polydipsia as noted. PHYSICAL EXAMINATION: GENERAL: This is an average built male in no apparent distress. VITAL SIGNS: Blood pressure of 140/80, pulse of 80 beats per minute and regular, temperature 98, res pirations 20. Height is 5 feet 10 inches. Weight is 154 pounds. HEENT: Head normocephalic. Eyes anicteric with pink conjunctivae. Fundoscopy not possible at this time. Ears, nose and throat otherwise normal. NECK: Supple. Thyroid gland is normal in size. No carotid bruits. No cervical adenopathy. CARDIOPULMONARY: There is an adynamic precordium. S1, S2 is rapid and regular. LUNGS: Clear to auscultation. ABDOMEN: Flat, soft with positive bowel sounds. EXTREMITIES: No peripheral edema. Pulses are +2 bilaterally. LABORATORY DATA: Chemistry showed a BUN of 48, sodium 125, potassium 6.2, chloride 89, CO2 is 8, glu cose is 548 and creatinine 2.0. His repeat glucose was 359. Lactic acid is 2.2. ASSESSMENT: This is a 36-year-old male with uncontrolled and decompensated type 1 insulin-dependent diabetes related to recent drug omission and presenting here with diabetic ketoacidosis and marked de hydration with spurious hyponatremia and hyperkalemia as noted thereof. PLAN OF MANAGEMENT: Concur with the present initiation of intensive insulin therapy with an insulin drip infusion as given and ordered. Will continue the vigorous IV hydration with normal saline and p referably to run at 200 mL per hour to replenish the lost fluids and electrolytes as noted. Would ob tain a hemoglobin A1c to confirm his prior glycemic control, and baseline thyroid function studies an d lipid panel will be ordered. Will obtain serial chemistries and supplement accordingly as needed. Will also consult our diabetic nurse educator to reinforce diabetic education and also our dietitian for nutritional evaluation and management. Will obtain serial chemistries and supplement accordingl y as needed. As his oral intake is started tomorrow morning and when the acidosis is resolved with a CO2 at least above 15, then may start him back on a more physiologic insulin dose regimen with a com bination of Levemir and Humalog to be ordered accordingly. Will follow. Alejandra Mejia MD cc: [id number] TT: 10/22/2016 09:44:36 Confirmation # [id number] Dictation # [id number] hector
[2016-10-22] MEDS ORDERED: GABAPENTIN 300 MG PO SCH (10:00)
[2016-10-22] MEDS ORDERED: Insulin Detemir 100 units/ml Vial (Levemir) SC ONE (10:05)
--- NOTE | 2016-10-22 10:43 | RAD ---
HISTORY: admission COMPARISON: Comparison is made to the previous exam dated 09/24/2014 FINDINGS: LUNGS: No active pulmonary disease. PLEURA: No significant pleural effusion identified, no pneumothorax apparent. CARDIOVASCULAR: Normal. OSSEOUS STRUCTURES: No significant abnormalities. VISUALIZED UPPER ABDOMEN: Normal. OTHER FINDINGS: None. IMPRESSION: No active disease.
--- NOTE | 2016-10-22 11:33 | PN ---
DATE: 10/22/2016 This is a 36-year-old gentleman with history of diabetes mellitus type 1, hypertension, diabetic nephropathy, who presented with several days of nausea, vomiting, malaise and weakness, lightheadedness and chills. His symptoms progressed to the point that he needed to seek medical attention at [facility]. The emesis he had was nonbloody, bilious and he was not able to take his insulin out of concern for hypoglycemia. No chest pain, no shortness of breath, no diarrhea, no constipation. PAST MEDICAL HISTORY: Diabetes, hypertension, diabetic nephropathy and history of DKA in the past. FAMILY HISTORY: Noncontributory. SOCIAL HISTORY: The patient is an active smoker. He smokes about half a pack a day for about 30 years. He also is an active marijuana user and drinks alcohol socially. REVIEW OF SYSTEMS: Revealed 12-organ system other than mentioned in history of present illness is negative. PHYSICAL EXAMINATION: VITAL SIGNS: Blood pressure 125/68, heart rate 63, oxygen saturation 98%, respiratory rate 21. HEAD AND NECK: Atraumatic. LUNGS: Clear to auscultation bilaterally. HEART: Regular rate and rhythm. S1, S2 normal. ABDOMEN: Soft, nontender, nondistended. MUSCULOSKELETAL: No C/C/E. NEUROLOGIC: The patient moves all extremities spontaneously. SKIN: Moist. PSYCHIATRIC: The patient is alert and oriented x 3, mildly lethargic which might be attributed to air deodorizer servicer hours. CAT scan of the chest, abdomen and pelvis revealed no acute disease in chest, limited evaluation of bowel due to streak and motion, mildly distended small bowel more suggestive of ileus than obstruction, no definite solid visceral abnormality identified. LABORATORIES: WBC 11.5, hemoglobin 13.5, platelet count 217. Sodium 138, potassium 2.7 (supplemented), chloride 105, carbon dioxide 22, BUN 24, creatinine 1.1, glucose 172, troponin 0.02 x 2 negative. MEDICATIONS: DuoNeb every 6, D5 half normal saline at 150 mL per hour, aspirin 81 mg daily, regular insulin sliding scale low protocol, regular insulin drip at 4 units per hour, Levemir 14 units subQ, Lovenox 40 mg subQ daily, Neurontin , nicotine patch, potassium supplementation, Protonix, Reglan, Zosyn. ASSESSMENT AND PLAN: This is a 36-year-old gentleman who presented with diabetic ketoacidosis (now resolved). His mildly elevated blood glucose most likely due to continuous D5 containing IV fluid infusion. At present time, we will overlap longer acting formulation of subQ insulin with his insulin drip and we will stop insulin drip 1 hour later. He is alert and awake even though mildly somnolent. He is visibly able to protect airways and there are no contraindications for oral hydration and nutrition. At present time, IV fluids will be discontinued and oral nutrition/hydration encouraged. We will continue with Accu-Chek every 4 hours. We will taper down frequency of his BMP. We will continue with deep venous thrombosis and gastrointestinal prophylaxis. We will continue empiric antibiotics until septic workup returns negative. Infectious disease service is following patient as well. ccm time 40 min Dong Ferrara MD cc: [id number] TT: 10/22/2016 11:32:42 Confirmation # [id number] Dictation # [id number] [id number]
--- NOTE | 2016-10-22 11:33 | CP.CCUPN ---
<Lisa Taveras - Last Filed: 10/22/16 12:07> CCU Subjective - Physician Review Events Since Last Encounter (Free Text): 10/22/16 11:30 Patient seen and examined bedside. Somewhat somnolent but easily arousable. AAOx3. Patient denies CP, SOB, abd pain, n/v overnight, fevers, chills. States he still feels slightly weak but significantly improved since admission. AG this AM 11 .Last BS 172. Critical Care Time Spent (in minutes): 40 CCU Objective - Vital Signs / Intake & Output Intake and Output (Last 8hrs): Intake & Output 10/21/16 10/22/16 10/22/16 22:59 06:59 14:59 Intake Total 1750 Output Total 2400 Balance -650 Weight 160 lb 6.4 oz Intake: IV 1150 Right Forearm 1150 Oral 600 Output: Urine 2400 Urine, Voided 2400 Other: Voiding Method Urinal # Bowel Movements 0 - Physical Exam Head: Positive for: Atraumatic, Normocephalic Pupils: Positive for: PERRL Extroacular Muscles: Positive for: EOMI Conjunctiva: Positive for: Normal Mouth: Positive for: Moist Mucous Membranes Neck: Positive for: Normal Range of Motion Respiratory/Chest: Positive for: Clear to Auscultation, Good Air Exchange. Negative for: Respiratory Distress, Accessory Muscle Use Cardiovascular: Positive for: Regular Rate and Rhythm, Normal S1, S2. Negative for: Murmurs Abdomen: Positive for: Normal Bowel Sounds. Negative for: Tenderness, Distention, Peritoneal Signs, Rebound, Guarding, McBurney's Point Tender, Rovsing's Sign Present Back: Positive for: Normal Inspection Upper Extremity: Positive for: Normal Inspection. Negative for: Cyanosis, Edema Lower Extremity: Positive for: Normal Inspection. Negative for: Edema Neurological: Positive for: GCS=15, CN II-XII Intact, Speech Normal Skin: Positive for: Warm, Dry, Normal Color. Negative for: Rashes Psychiatric: Positive for: Alert, Oriented x 3, Normal Insight, Normal Concentration - Medications Active Medications: Active Medications Generic Name Dose Route Start Last Admin Trade Name Freq PRN Reason Stop Dose Admin Albuterol/Ipratropium 3 ml 10/21/16 22:00 10/22/16 07:25 Duoneb 3 Mg/0.5 Mg (3 Ml) Ud IH 10/29/16 02:01 3 ml [id number] MEGAN Administration Aspirin 81 mg 10/22/16 10:00 10/22/16 09:10 Ecotrin PO 81 mg DAILY MEGAN Administration Atorvastatin Calcium 20 mg 10/22/16 17:00 Lipitor PO DIN MEGAN Enoxaparin Sodium 40 mg 10/21/16 22:30 10/22/16 09:11 Lovenox SC 40 mg DAILY MEGAN Administration Protocol Gabapentin 300 mg 10/22/16 10:00 10/22/16 09:11 Neurontin PO 300 mg BID MEGAN Administration Insulin Human Regular 100 100 mls @ 4 mls/hr 10/21/16 23:40 10/22/16 09:30 units/ Sodium Chloride IV 2 units/hr .Q24H PRN Titration TITRATE PER PROTOCOL Protocol 4 UNITS/HR Piperacillin Sod/Tazobactam Sod 100 mls @ 100 mls/hr 10/22/16 00:14 10/22/16 05 :21 Zosyn 2.25 Gm In 0.9% 100 Ml IVPB 10/28/16 00:01 100 mls/hr Q6 MEGAN Administration Protocol Dextrose/Sodium Chloride 1,000 mls @ 150 mls/hr 10/22/16 03:45 10/22/16 03:45 Dextrose 5%/0.45% Ns 1000 Ml IV 150 mls/hr .[id number] MEGAN Administration Potassium Chloride 100 mls @ 50 mls/hr 10/22/16 09:30 10/22/16 10:26 Potassium Chloride 20 Meq/100 Ml IVPB 10/22/16 13:29 50 mls/hr Q2H MEGAN Administration Potassium Phosphate 15 mmole/ 255 mls @ 85 mls/hr 10/22/16 09:30 Sodium Chloride IV 10/22/16 12:29 ONCE ONE Insulin Human Lispro 0 units 10/22/16 11:30 Humalog Low SC ACHS MEGAN Protocol Metoclopramide HCl 10 mg 10/21/16 22:00 10/22/16 08:20 Reglan IVP 10 mg ACHS MEGAN Administration Nicotine 1 patch 10/22/16 10:00 10/22/16 09:12 Nicoderm Cq TD 1 patch DAILY MEGAN Administration Okncv-0-Mtck Ethyl Esters 2 gm 03/21/17 10:45 Lovaza PO BID MEGAN Ondansetron HCl 4 mg 10/21/16 20:57 Zofran Inj IVP Q4H PRN Nausea/Vomiting Pantoprazole Sodium 40 mg 10/21/16 22:00 10/21/16 22:29 Protonix Inj IVP 40 mg Q12 MEGAN Administration - Patient Studies Lab Studies: Lab Studies 10/22/16 10/22/16 10/22/16 Range/Units 07:40 07:39 06:29 WBC 11.5 H D (4.5-11.0) 10^3/ul RBC 4.77 (3.5-6.1) 10^6/uL Hgb 13.5 L (14.0-18.0) gm/dL Hct 36.3 L (42.0-52.0) % MCV 76.1 L (80.0-105.0) fL MCH 28.3 (25.0-35.0) pg MCHC 37.2 H (31.0-37.0) g/dl RDW 12.9 (11.5-14.5) % Plt Count 217 (120.0-450.0) 10^3/uL MPV 11.6 H (7.0-11.0) fl Gran % 78.6 H (50.0-68.0) % Lymph % (Auto) 7.7 L (22.0-35.0) % [place] % (Auto) 13.4 H (1.0-6.0) % Eos % (Auto) 0.2 L (1.5-5.0) % Baso % (Auto) 0.1 (0.0-3.0) % Gran # 9.03 H (1.4-6.5) Lymph # 0.9 L (1.2-3.4) [place] # 1.5 H (0.1-0.6) Eos # 0.0 (0.0-0.7) Baso # 0.01 (0.0-2.0) K/mm3 Sodium 138 (132-148) mmol/L Potassium 2.7 L* D (3.6-5.0) mmol/L Chloride 105 (98-107) mmol/L Carbon Dioxide 22 (21-33) mmol/L Anion Gap 14 (10-20) BUN 24 H (7-21) mg/dL Creatinine 1.1 (0.5-1.4) mg/dL Est GFR ( Amer) > 60 Est GFR (Non-Af Amer) > 60 POC Glucose (mg/dL) 179 H 167 H (65-110) mg/dL Random Glucose 172 H (70-110) mg/dL Uric Acid (3.5-8.5) mg/dL Calcium 8.8 (8.4-10.5) mg/dL Phosphorus 2.2 L (2.5-4.5) mg/dL Magnesium 2.5 H (1.7-2.2) mg/dL Total Bilirubin 0.8 (0.2-1.3) mg/dL Direct Bilirubin 0.5 H (0.0-0.4) mg/dL AST 21 (15-59) U/L ALT 24 (7-56) U/L Alkaline Phosphatase 108 (38-133) U/L Lactate Dehydrogenase 402 (333-699) U/L Total Creatine Kinase 123 (35-230) U/L Troponin I 0.02 D ng/mL Total Protein 6.8 (5.8-8.3) g/dL Albumin 3.8 (3.0-4.8) g/dL Globulin 3.0 gm/dL Albumin/Globulin Ratio 1.3 (1.1-1.8) Triglycerides (35-160) mg/dL Cholesterol (130-200) mg/dL LDL Cholesterol Direct (0-129) mg/dL HDL Cholesterol (29-60) mg/dL Free T4 (0.78-2.19) ng/dL Thyroxine (T4) (5.5-11.0) ug/dL TSH 3rd Generation (0.46-4.68) mIU/mL Urine Opiates Screen (NEGATIVE) Urine Methadone Screen (NEGATIVE) Ur Barbiturates Screen (NEGATIVE) Ur Phencyclidine Scrn (NEGATIVE) Ur Amphetamines Screen (NEGATIVE) U Benzodiazepines Scrn (NEGATIVE) U Oth Cocaine Metabols (NEGATIVE) U Cannabinoids Screen (NEGATIVE) 10/22/16 10/22/16 10/22/16 Range/Units 05:51 04:33 03:39 WBC (4.5-11.0) 10^3/ul RBC (3.5-6.1) 10^6/uL Hgb (14.0-18.0) gm/dL Hct (42.0-52.0) % MCV (80.0-105.0) fL MCH (25.0-35.0) pg MCHC (31.0-37.0) g/dl RDW (11.5-14.5) % Plt Count (120.0-450.0) 10^3/uL MPV (7.0-11.0) fl Gran % (50.0-68.0) % Lymph % (Auto) (22.0-35.0) % [place] % (Auto) (1.0-6.0) % Eos % (Auto) (1.5-5.0) % Baso % (Auto) (0.0-3.0) % Gran # (1.4-6.5) Lymph # (1.2-3.4) [place] # (0.1-0.6) Eos # (0.0-0.7) Baso # (0.0-2.0) K/mm3 Sodium (132-148) mmol/L Potassium (3.6-5.0) mmol/L Chloride (98-107) mmol/L Carbon Dioxide (21-33) mmol/L Anion Gap (10-20) BUN (7-21) mg/dL Creatinine (0.5-1.4) mg/dL Est GFR ( Amer) Est GFR (Non-Af Amer) POC Glucose (mg/dL) 200 H 205 H 210 H (65-110) mg/dL Random Glucose (70-110) mg/dL Uric Acid (3.5-8.5) mg/dL Calcium (8.4-10.5) mg/dL Phosphorus (2.5-4.5) mg/dL Magnesium (1.7-2.2) mg/dL Total Bilirubin (0.2-1.3) mg/dL Direct Bilirubin (0.0-0.4) mg/dL AST (15-59) U/L ALT (7-56) U/L Alkaline Phosphatase (38-133) U/L Lactate Dehydrogenase (333-699) U/L Total Creatine Kinase (35-230) U/L Troponin I ng/mL Total Protein (5.8-8.3) g/dL Albumin (3.0-4.8) g/dL Globulin gm/dL Albumin/Globulin Ratio (1.1-1.8) Triglycerides (35-160) mg/dL Cholesterol (130-200) mg/dL LDL Cholesterol Direct (0-129) mg/dL HDL Cholesterol (29-60) mg/dL Free T4 (0.78-2.19) ng/dL Thyroxine (T4) (5.5-11.0) ug/dL TSH 3rd Generation (0.46-4.68) mIU/mL Urine Opiates Screen (NEGATIVE) Urine Methadone Screen (NEGATIVE) Ur Barbiturates Screen (NEGATIVE) Ur Phencyclidine Scrn (NEGATIVE) Ur Amphetamines Screen (NEGATIVE) U Benzodiazepines Scrn (NEGATIVE) U Oth Cocaine Metabols (NEGATIVE) U Cannabinoids Screen (NEGATIVE) 10/22/16 10/22/16 10/22/16 Range/Units 02:39 01:35 00:27 WBC (4.5-11.0) 10^3/ul RBC (3.5-6.1) 10^6/uL Hgb (14.0-18.0) gm/dL Hct (42.0-52.0) % MCV (80.0-105.0) fL MCH (25.0-35.0) pg MCHC (31.0-37.0) g/dl RDW (11.5-14.5) % Plt Count (120.0-450.0) 10^3/uL MPV (7.0-11.0) fl Gran % (50.0-68.0) % Lymph % (Auto) (22.0-35.0) % [place] % (Auto) (1.0-6.0) % Eos % (Auto) (1.5-5.0) % Baso % (Auto) (0.0-3.0) % Gran # (1.4-6.5) Lymph # (1.2-3.4) [place] # (0.1-0.6) Eos # (0.0-0.7) Baso # (0.0-2.0) K/mm3 Sodium (132-148) mmol/L Potassium (3.6-5.0) mmol/L Chloride (98-107) mmol/L Carbon Dioxide (21-33) mmol/L Anion Gap (10-20) BUN (7-21) mg/dL Creatinine (0.5-1.4) mg/dL Est GFR ( Amer) Est GFR (Non-Af Amer) POC Glucose (mg/dL) 220 H 264 H 266 H (65-110) mg/dL Random Glucose (70-110) mg/dL Uric Acid (3.5-8.5) mg/dL Calcium (8.4-10.5) mg/dL Phosphorus (2.5-4.5) mg/dL Magnesium (1.7-2.2) mg/dL Total Bilirubin (0.2-1.3) mg/dL Direct Bilirubin (0.0-0.4) mg/dL AST (15-59) U/L ALT (7-56) U/L Alkaline Phosphatase (38-133) U/L Lactate Dehydrogenase (333-699) U/L Total Creatine Kinase (35-230) U/L Troponin I ng/mL Total Protein (5.8-8.3) g/dL Albumin (3.0-4.8) g/dL Globulin gm/dL Albumin/Globulin Ratio (1.1-1.8) Triglycerides (35-160) mg/dL Cholesterol (130-200) mg/dL LDL Cholesterol Direct (0-129) mg/dL HDL Cholesterol (29-60) mg/dL Free T4 (0.78-2.19) ng/dL Thyroxine (T4) (5.5-11.0) ug/dL TSH 3rd Generation (0.46-4.68) mIU/mL Urine Opiates Screen (NEGATIVE) Urine Methadone Screen (NEGATIVE) Ur Barbiturates Screen (NEGATIVE) Ur Phencyclidine Scrn (NEGATIVE) Ur Amphetamines Screen (NEGATIVE) U Benzodiazepines Scrn (NEGATIVE) U Oth Cocaine Metabols (NEGATIVE) U Cannabinoids Screen (NEGATIVE) 10/22/16 10/21/16 10/21/16 Range/Units 00:20 23:59 23:21 WBC (4.5-11.0) 10^3/ul RBC (3.5-6.1) 10^6/uL Hgb (14.0-18.0) gm/dL Hct (42.0-52.0) % MCV (80.0-105.0) fL MCH (25.0-35.0) pg MCHC (31.0-37.0) g/dl RDW (11.5-14.5) % Plt Count (120.0-450.0) 10^3/uL MPV (7.0-11.0) fl Gran % (50.0-68.0) % Lymph % (Auto) (22.0-35.0) % [place] % (Auto) (1.0-6.0) % Eos % (Auto) (1.5-5.0) % Baso % (Auto) (0.0-3.0) % Gran # (1.4-6.5) Lymph # (1.2-3.4) [place] # (0.1-0.6) Eos # (0.0-0.7) Baso # (0.0-2.0) K/mm3 Sodium 134 (132-148) mmol/L Potassium 4.2 (3.6-5.0) mmol/L Chloride 100 (98-107) mmol/L Carbon Dioxide 15 L (21-33) mmol/L Anion Gap 23 H (10-20) BUN 38 H (7-21) mg/dL Creatinine 1.4 (0.5-1.4) mg/dL Est GFR ( Amer) > 60 Est GFR (Non-Af Amer) 57 POC Glucose (mg/dL) 346 H (65-110) mg/dL Random Glucose 306 H* D (70-110) mg/dL Uric Acid 12.0 H (3.5-8.5) mg/dL Calcium 9.0 (8.4-10.5) mg/dL Phosphorus (2.5-4.5) mg/dL Magnesium (1.7-2.2) mg/dL Total Bilirubin (0.2-1.3) mg/dL Direct Bilirubin (0.0-0.4) mg/dL AST (15-59) U/L ALT (7-56) U/L Alkaline Phosphatase (38-133) U/L Lactate Dehydrogenase (333-699) U/L Total Creatine Kinase (35-230) U/L Troponin I ng/mL Total Protein (5.8-8.3) g/dL Albumin (3.0-4.8) g/dL Globulin gm/dL Albumin/Globulin Ratio (1.1-1.8) Triglycerides 449 H (35-160) mg/dL Cholesterol 188 (130-200) mg/dL LDL Cholesterol Direct 72 (0-129) mg/dL HDL Cholesterol 43 (29-60) mg/dL Free T4 0.91 (0.78-2.19) ng/dL Thyroxine (T4) 4.0 L (5.5-11.0) ug/dL TSH 3rd Generation 0.86 (0.46-4.68) mIU/mL Urine Opiates Screen (NEGATIVE) Urine Methadone Screen (NEGATIVE) Ur Barbiturates Screen (NEGATIVE) Ur Phencyclidine Scrn (NEGATIVE) Ur Amphetamines Screen (NEGATIVE) U Benzodiazepines Scrn (NEGATIVE) U Oth Cocaine Metabols (NEGATIVE) U Cannabinoids Screen (NEGATIVE) 10/21/16 10/21/16 Range/Units 22:48 21:16 WBC (4.5-11.0) 10^3/ul RBC (3.5-6.1) 10^6/uL Hgb (14.0-18.0) gm/dL Hct (42.0-52.0) % MCV (80.0-105.0) fL MCH (25.0-35.0) pg MCHC (31.0-37.0) g/dl RDW (11.5-14.5) % Plt Count (120.0-450.0) 10^3/uL MPV (7.0-11.0) fl Gran % (50.0-68.0) % Lymph % (Auto) (22.0-35.0) % [place] % (Auto) (1.0-6.0) % Eos % (Auto) (1.5-5.0) % Baso % (Auto) (0.0-3.0) % Gran # (1.4-6.5) Lymph # (1.2-3.4) [place] # (0.1-0.6) Eos # (0.0-0.7) Baso # (0.0-2.0) K/mm3 Sodium (132-148) mmol/L Potassium (3.6-5.0) mmol/L Chloride (98-107) mmol/L Carbon Dioxide (21-33) mmol/L Anion Gap (10-20) BUN (7-21) mg/dL Creatinine (0.5-1.4) mg/dL Est GFR ( Amer) Est GFR (Non-Af Amer) POC Glucose (mg/dL) 359 H (65-110) mg/dL Random Glucose (70-110) mg/dL Uric Acid (3.5-8.5) mg/dL Calcium (8.4-10.5) mg/dL Phosphorus (2.5-4.5) mg/dL Magnesium (1.7-2.2) mg/dL Total Bilirubin (0.2-1.3) mg/dL Direct Bilirubin (0.0-0.4) mg/dL AST (15-59) U/L ALT (7-56) U/L Alkaline Phosphatase (38-133) U/L Lactate Dehydrogenase (333-699) U/L Total Creatine Kinase (35-230) U/L Troponin I ng/mL Total Protein (5.8-8.3) g/dL Albumin (3.0-4.8) g/dL Globulin gm/dL Albumin/Globulin Ratio (1.1-1.8) Triglycerides (35-160) mg/dL Cholesterol (130-200) mg/dL LDL Cholesterol Direct (0-129) mg/dL HDL Cholesterol (29-60) mg/dL Free T4 (0.78-2.19) ng/dL Thyroxine (T4) (5.5-11.0) ug/dL TSH 3rd Generation (0.46-4.68) mIU/mL Urine Opiates Screen Positive H (NEGATIVE) Urine Methadone Screen Negative (NEGATIVE) Ur Barbiturates Screen Negative (NEGATIVE) Ur Phencyclidine Scrn Negative (NEGATIVE) Ur Amphetamines Screen Negative (NEGATIVE) U Benzodiazepines Scrn Negative (NEGATIVE) U Oth Cocaine Metabols Negative (NEGATIVE) U Cannabinoids Screen Negative (NEGATIVE) Laboratory Results - last 24 hr 10/21/16 10/21/16 10/21/16 21:16 22:48 23:21 WBC RBC Hgb Hct MCV MCH MCHC RDW Plt Count MPV Gran % Lymph % (Auto) [place] % (Auto) Eos % (Auto) Baso % (Auto) Gran # Lymph # [place] # Eos # Baso # Sodium Potassium Chloride Carbon Dioxide Anion Gap BUN Creatinine Est GFR ( Amer) Est GFR (Non-Af Amer) POC Glucose (mg/dL) 359 H 346 H Random Glucose Uric Acid Calcium Phosphorus Magnesium Total Bilirubin Direct Bilirubin AST ALT Alkaline Phosphatase Lactate Dehydrogenase Total Creatine Kinase Troponin I Total Protein Albumin Globulin Albumin/Globulin Ratio Triglycerides Cholesterol LDL Cholesterol Direct HDL Cholesterol Free T4 Thyroxine (T4) TSH 3rd Generation Urine Opiates Screen Positive H Urine Methadone Screen Negative Ur Barbiturates Screen Negative Ur Phencyclidine Scrn Negative Ur Amphetamines Screen Negative U Benzodiazepines Scrn Negative U Oth Cocaine Metabols Negative U Cannabinoids Screen Negative 10/21/16 10/22/16 10/22/16 23:59 00:20 00:27 WBC RBC Hgb Hct MCV MCH MCHC RDW Plt Count MPV Gran % Lymph % (Auto) [place] % (Auto) Eos % (Auto) Baso % (Auto) Gran # Lymph # [place] # Eos # Baso # Sodium 134 Potassium 4.2 Chloride 100 Carbon Dioxide 15 L Anion Gap 23 H BUN 38 H Creatinine 1.4 Est GFR ( Amer) > 60 Est GFR (Non-Af Amer) 57 POC Glucose (mg/dL) 266 H Random Glucose 306 H* D Uric Acid 12.0 H Calcium 9.0 Phosphorus Magnesium Total Bilirubin Direct Bilirubin AST ALT Alkaline Phosphatase Lactate Dehydrogenase Total Creatine Kinase Troponin I Total Protein Albumin Globulin Albumin/Globulin Ratio Triglycerides 449 H Cholesterol 188 LDL Cholesterol Direct 72 HDL Cholesterol 43 Free T4 0.91 Thyroxine (T4) 4.0 L TSH 3rd Generation 0.86 Urine Opiates Screen Urine Methadone Screen Ur Barbiturates Screen Ur Phencyclidine Scrn Ur Amphetamines Screen U Benzodiazepines Scrn U Oth Cocaine Metabols U Cannabinoids Screen 10/22/16 10/22/16 10/22/16 01:35 02:39 03:39 WBC RBC Hgb Hct MCV MCH MCHC RDW Plt Count MPV Gran % Lymph % (Auto) [place] % (Auto) Eos % (Auto) Baso % (Auto) Gran # Lymph # [place] # Eos # Baso # Sodium Potassium Chloride Carbon Dioxide Anion Gap BUN Creatinine Est GFR ( Amer) Est GFR (Non-Af Amer) POC Glucose (mg/dL) 264 H 220 H 210 H Random Glucose Uric Acid Calcium Phosphorus Magnesium Total Bilirubin Direct Bilirubin AST ALT Alkaline Phosphatase Lactate Dehydrogenase Total Creatine Kinase Troponin I Total Protein Albumin Globulin Albumin/Globulin Ratio Triglycerides Cholesterol LDL Cholesterol Direct HDL Cholesterol Free T4 Thyroxine (T4) TSH 3rd Generation Urine Opiates Screen Urine Methadone Screen Ur Barbiturates Screen Ur Phencyclidine Scrn Ur Amphetamines Screen U Benzodiazepines Scrn U Oth Cocaine Metabols U Cannabinoids Screen 10/22/16 10/22/16 10/22/16 04:33 05:51 06:29 WBC RBC Hgb Hct MCV MCH MCHC RDW Plt Count MPV Gran % Lymph % (Auto) [place] % (Auto) Eos % (Auto) Baso % (Auto) Gran # Lymph # [place] # Eos # Baso # Sodium Potassium Chloride Carbon Dioxide Anion Gap BUN Creatinine Est GFR ( Amer) Est GFR (Non-Af Amer) POC Glucose (mg/dL) 205 H 200 H 167 H Random Glucose Uric Acid Calcium Phosphorus Magnesium Total Bilirubin Direct Bilirubin AST ALT Alkaline Phosphatase Lactate Dehydrogenase Total Creatine Kinase Troponin I Total Protein Albumin Globulin Albumin/Globulin Ratio Triglycerides Cholesterol LDL Cholesterol Direct HDL Cholesterol Free T4 Thyroxine (T4) TSH 3rd Generation Urine Opiates Screen Urine Methadone Screen Ur Barbiturates Screen Ur Phencyclidine Scrn Ur Amphetamines Screen U Benzodiazepines Scrn U Oth Cocaine Metabols U Cannabinoids Screen 10/22/16 10/22/16 07:39 07:40 WBC 11.5 H D RBC 4.77 Hgb 13.5 L Hct 36.3 L MCV 76.1 L MCH 28.3 MCHC 37.2 H RDW 12.9 Plt Count 217 MPV 11.6 H Gran % 78.6 H Lymph % (Auto) 7.7 L [place] % (Auto) 13.4 H Eos % (Auto) 0.2 L Baso % (Auto) 0.1 Gran # 9.03 H Lymph # 0.9 L [place] # 1.5 H Eos # 0.0 Baso # 0.01 Sodium 138 Potassium 2.7 L* D Chloride 105 Carbon Dioxide 22 Anion Gap 14 BUN 24 H Creatinine 1.1 Est GFR ( Amer) > 60 Est GFR (Non-Af Amer) > 60 POC Glucose (mg/dL) 179 H Random Glucose 172 H Uric Acid Calcium 8.8 Phosphorus 2.2 L Magnesium 2.5 H Total Bilirubin 0.8 Direct Bilirubin 0.5 H AST 21 ALT 24 Alkaline Phosphatase 108 Lactate Dehydrogenase 402 Total Creatine Kinase 123 Troponin I 0.02 D Total Protein 6.8 Albumin 3.8 Globulin 3.0 Albumin/Globulin Ratio 1.3 Triglycerides Cholesterol LDL Cholesterol Direct HDL Cholesterol Free T4 Thyroxine (T4) TSH 3rd Generation Urine Opiates Screen Urine Methadone Screen Ur Barbiturates Screen Ur Phencyclidine Scrn Ur Amphetamines Screen U Benzodiazepines Scrn U Oth Cocaine Metabols U Cannabinoids Screen EKG/Cardiology Studies: Cardiology / EKG Studies 10/22/16 07:00 EKG [ELECTROCARDIOGRAM] DAILY Comment: Reason For Exam: chest pain Fingerstick Blood Sugar Results: 167 Review of Systems - Constitutional Constitutional: absent: Fever, Chills - EENT Eyes: absent: Blurred Vision, Change in Vision, Diplopia Ears: absent: Dizziness - Cardiovascular Cardiovascular: absent: Chest Pain, Dyspnea - Respiratory Respiratory: absent: Cough, Dyspnea, Pain on Inspiration - Gastrointestinal Gastrointestinal: absent: Abdominal Pain, Diarrhea, Nausea, Vomiting - Genitourinary Genitourinary: absent: Dysuria, Flank Pain - Integumentary Integumentary: absent: New Lesions - Neurological Neurological: absent: Disequilibrium, Headaches, Syncope - Psychiatric Psychiatric: absent: Confusion Critical Care Progress Note - Ventilator Checklist PUD Prophalyxis: Yes DVT Prophylaxis: Yes - Extremities/Vascular Does the Patient have a Central Venous Catheter?: No Does the Patient need a Central Venous Catheter?: No Does the Patient have a Dawn Catheter?: No Does the Patient need a Dawn Catheter?: No - Nutrition Nutrition: Nutrition Category Date Time Status Consistent Carbohydrate [DIET] Diets 10/22/16 Lunch Ordered Assessment/Plan - Assessment and Plan (Free Text) Assessment: 36 yo M w h/o DM1, HTN, diabetic peripheral neuropathy, active tobacco abuse, previous episodes of DKA admitted with DKA likely 2/2 medical noncomplience since patient ran out of NPH a few days prior to presentation. Plan: Neuro: AAOx3, NAD Continue neurontin for DM-related peripheral neuropathy Maintain normothermia Cardio: SNR, Peaked T waves resolved on telemetry s/p Kayaxelate and Ca Gluconate Maintain MAP >65 Significant hypertriglyceridemia - continue lipitor Pulm: No acute issues. Appears comfortable on Room Air. Continue to monitor Duonebs Q6hr GI: GI ppx, antiemetics PRN Renal: SAMANTHA resolved. Continue to monitor Significant hypokalemia (2.7), hypophosphatemia (2.2). Will replace. Recheck AM labs Avoid nephrotoxic medications Endo: DKA resolved. AG closed -- 11 this AM. Last BS 172. Given 14units Levemir overlapped with Insulin drip x1 hr. Start Lispro Low SSI. Will then feed patient , recheck BMP at 4pm. DC D5/1/2NS A1C 9.2 Endo consult pending. Recs appreciated. ID: Leukocytosis improved 21.8 --> 11.5. Continue Vanc and zosyn as per ID. Blood, sputum and urine cultures pending CT chest, abd and pelvis shows no cute findings DVT/GI ppx: SQL, Protonix, DM diet Dispo: Transfer to [facility] once tolerates PO diet - Date & Time Date: 10/22/16 Time: 11:34 <Dong Ferrara - Last Filed: 10/22/16 15:11> CCU Objective - Vital Signs / Intake & Output Intake and Output (Last 8hrs): Intake & Output 10/22/16 10/22/16 10/22/16 06:59 14:59 22:59 Intake Total 1750 Output Total 2400 Balance -650 Weight 160 lb 6.4 oz Intake: IV 1150 Right Forearm 1150 Oral 600 Output: Urine 2400 Urine, Voided 2400 Other: Voiding Method Urinal # Bowel Movements 0 - Medications Active Medications: Active Medications Generic Name Dose Route Start Last Admin Trade Name Matthewq PRN Reason Stop Dose Admin Albuterol/Ipratropium 3 ml 10/21/16 22:00 10/22/16 13:08 Duoneb 3 Mg/0.5 Mg (3 Ml) Ud IH 10/29/16 02:01 3 ml [id number] MEGAN Administration Aspirin 81 mg 10/22/16 10:00 10/22/16 09:10 Ecotrin PO 81 mg DAILY MEGAN Administration Atorvastatin Calcium 20 mg 10/22/16 17:00 Lipitor PO DIN MEGAN Enoxaparin Sodium 40 mg 10/21/16 22:30 10/22/16 09:11 Lovenox SC 40 mg DAILY MEGAN Administration Protocol Gabapentin 300 mg 10/22/16 10:00 10/22/16 09:11 Neurontin PO 300 mg BID MEGAN Administration Piperacillin Sod/Tazobactam Sod 100 mls @ 100 mls/hr 10/22/16 00:14 10/22/16 12 :36 Zosyn 2.25 Gm In 0.9% 100 Ml IVPB 10/28/16 00:01 100 mls/hr Q6 MEGAN Administration Protocol Dextrose/Sodium Chloride 1,000 mls @ 150 mls/hr 10/22/16 03:45 10/22/16 03:45 Dextrose 5%/0.45% Ns 1000 Ml IV 150 mls/hr .[id number] MEGAN Administration Insulin Human Lispro 0 units 10/22/16 11:30 10/22/16 12:21 Humalog Low SC Not Given ACHS MEGAN Protocol Metoclopramide HCl 10 mg 10/21/16 22:00 10/22/16 12:24 Reglan IVP 10 mg ACHS MEGAN Administration Nicotine 1 patch 10/22/16 10:00 10/22/16 09:12 Nicoderm Cq TD 1 patch DAILY MEGAN Administration [id number] Ethyl Esters 2 gm 10/22/16 10:45 10/22/16 12:29 Lovaza PO 2 gm BID MEGAN Administration Ondansetron HCl 4 mg 10/21/16 20:57 Zofran Inj IVP Q4H PRN Nausea/Vomiting Pantoprazole Sodium 40 mg 10/21/16 22:00 10/21/16 22:29 Protonix Inj IVP 40 mg Q12 MEGAN Administration - Patient Studies Lab Studies: Lab Studies 10/22/16 10/22/16 10/22/16 Range/Units 07:40 07:39 06:29 WBC 11.5 H D (4.5-11.0) 10^3/ul RBC 4.77 (3.5-6.1) 10^6/uL Hgb 13.5 L (14.0-18.0) gm/dL Hct 36.3 L (42.0-52.0) % MCV 76.1 L (80.0-105.0) fL MCH 28.3 (25.0-35.0) pg MCHC 37.2 H (31.0-37.0) g/dl RDW 12.9 (11.5-14.5) % Plt Count 217 (120.0-450.0) 10^3/uL MPV 11.6 H (7.0-11.0) fl Gran % 78.6 H (50.0-68.0) % Lymph % (Auto) 7.7 L (22.0-35.0) % [place] % (Auto) 13.4 H (1.0-6.0) % Eos % (Auto) 0.2 L (1.5-5.0) % Baso % (Auto) 0.1 (0.0-3.0) % Gran # 9.03 H (1.4-6.5) Lymph # 0.9 L (1.2-3.4) [place] # 1.5 H (0.1-0.6) Eos # 0.0 (0.0-0.7) Baso # 0.01 (0.0-2.0) K/mm3 Sodium 138 (132-148) mmol/L Potassium 2.7 L* D (3.6-5.0) mmol/L Chloride 105 (98-107) mmol/L Carbon Dioxide 22 (21-33) mmol/L Anion Gap 14 (10-20) BUN 24 H (7-21) mg/dL Creatinine 1.1 (0.5-1.4) mg/dL Est GFR ( Amer) > 60 Est GFR (Non-Af Amer) > 60 POC Glucose (mg/dL) 179 H 167 H (65-110) mg/dL Random Glucose 172 H (70-110) mg/dL Hemoglobin A1c (4.2-6.5) % Uric Acid (3.5-8.5) mg/dL Calcium 8.8 (8.4-10.5) mg/dL Phosphorus 2.2 L (2.5-4.5) mg/dL Magnesium 2.5 H (1.7-2.2) mg/dL Total Bilirubin 0.8 (0.2-1.3) mg/dL Direct Bilirubin 0.5 H (0.0-0.4) mg/dL AST 21 (15-59) U/L ALT 24 (7-56) U/L Alkaline Phosphatase 108 (38-133) U/L Lactate Dehydrogenase 402 (333-699) U/L Total Creatine Kinase 123 (35-230) U/L Troponin I 0.02 D ng/mL Total Protein 6.8 (5.8-8.3) g/dL Albumin 3.8 (3.0-4.8) g/dL Globulin 3.0 gm/dL Albumin/Globulin Ratio 1.3 (1.1-1.8) Triglycerides (35-160) mg/dL Cholesterol (130-200) mg/dL LDL Cholesterol Direct (0-129) mg/dL HDL Cholesterol (29-60) mg/dL Free T4 (0.78-2.19) ng/dL Thyroxine (T4) (5.5-11.0) ug/dL TSH 3rd Generation (0.46-4.68) mIU/mL Urine Opiates Screen (NEGATIVE) Urine Methadone Screen (NEGATIVE) Ur Barbiturates Screen (NEGATIVE) Ur Phencyclidine Scrn (NEGATIVE) Ur Amphetamines Screen (NEGATIVE) U Benzodiazepines Scrn (NEGATIVE) U Oth Cocaine Metabols (NEGATIVE) U Cannabinoids Screen (NEGATIVE) 10/22/16 10/22/16 10/22/16 Range/Units 05:51 04:33 03:39 WBC (4.5-11.0) 10^3/ul RBC (3.5-6.1) 10^6/uL Hgb (14.0-18.0) gm/dL Hct (42.0-52.0) % MCV (80.0-105.0) fL MCH (25.0-35.0) pg MCHC (31.0-37.0) g/dl RDW (11.5-14.5) % Plt Count (120.0-450.0) 10^3/uL MPV (7.0-11.0) fl Gran % (50.0-68.0) % Lymph % (Auto) (22.0-35.0) % [place] % (Auto) (1.0-6.0) % Eos % (Auto) (1.5-5.0) % Baso % (Auto) (0.0-3.0) % Gran # (1.4-6.5) Lymph # (1.2-3.4) [place] # (0.1-0.6) Eos # (0.0-0.7) Baso # (0.0-2.0) K/mm3 Sodium (132-148) mmol/L Potassium (3.6-5.0) mmol/L Chloride (98-107) mmol/L Carbon Dioxide (21-33) mmol/L Anion Gap (10-20) BUN (7-21) mg/dL Creatinine (0.5-1.4) mg/dL Est GFR ( Amer) Est GFR (Non-Af Amer) POC Glucose (mg/dL) 200 H 205 H 210 H (65-110) mg/dL Random Glucose (70-110) mg/dL Hemoglobin A1c (4.2-6.5) % Uric Acid (3.5-8.5) mg/dL Calcium (8.4-10.5) mg/dL Phosphorus (2.5-4.5) mg/dL Magnesium (1.7-2.2) mg/dL Total Bilirubin (0.2-1.3) mg/dL Direct Bilirubin (0.0-0.4) mg/dL AST (15-59) U/L ALT (7-56) U/L Alkaline Phosphatase (38-133) U/L Lactate Dehydrogenase (333-699) U/L Total Creatine Kinase (35-230) U/L Troponin I ng/mL Total Protein (5.8-8.3) g/dL Albumin (3.0-4.8) g/dL Globulin gm/dL Albumin/Globulin Ratio (1.1-1.8) Triglycerides (35-160) mg/dL Cholesterol (130-200) mg/dL LDL Cholesterol Direct (0-129) mg/dL HDL Cholesterol (29-60) mg/dL Free T4 (0.78-2.19) ng/dL Thyroxine (T4) (5.5-11.0) ug/dL TSH 3rd Generation (0.46-4.68) mIU/mL Urine Opiates Screen (NEGATIVE) Urine Methadone Screen (NEGATIVE) Ur Barbiturates Screen (NEGATIVE) Ur Phencyclidine Scrn (NEGATIVE) Ur Amphetamines Screen (NEGATIVE) U Benzodiazepines Scrn (NEGATIVE) U Oth Cocaine Metabols (NEGATIVE) U Cannabinoids Screen (NEGATIVE) 10/22/16 10/22/16 10/22/16 Range/Units 02:39 01:35 00:27 WBC (4.5-11.0) 10^3/ul RBC (3.5-6.1) 10^6/uL Hgb (14.0-18.0) gm/dL Hct (42.0-52.0) % MCV (80.0-105.0) fL MCH (25.0-35.0) pg MCHC (31.0-37.0) g/dl RDW (11.5-14.5) % Plt Count (120.0-450.0) 10^3/uL MPV (7.0-11.0) fl Gran % (50.0-68.0) % Lymph % (Auto) (22.0-35.0) % [place] % (Auto) (1.0-6.0) % Eos % (Auto) (1.5-5.0) % Baso % (Auto) (0.0-3.0) % Gran # (1.4-6.5) Lymph # (1.2-3.4) [place] # (0.1-0.6) Eos # (0.0-0.7) Baso # (0.0-2.0) K/mm3 Sodium (132-148) mmol/L Potassium (3.6-5.0) mmol/L Chloride (98-107) mmol/L Carbon Dioxide (21-33) mmol/L Anion Gap (10-20) BUN (7-21) mg/dL Creatinine (0.5-1.4) mg/dL Est GFR ( Amer) Est GFR (Non-Af Amer) POC Glucose (mg/dL) 220 H 264 H 266 H (65-110) mg/dL Random Glucose (70-110) mg/dL Hemoglobin A1c (4.2-6.5) % Uric Acid (3.5-8.5) mg/dL Calcium (8.4-10.5) mg/dL Phosphorus (2.5-4.5) mg/dL Magnesium (1.7-2.2) mg/dL Total Bilirubin (0.2-1.3) mg/dL Direct Bilirubin (0.0-0.4) mg/dL AST (15-59) U/L ALT (7-56) U/L Alkaline Phosphatase (38-133) U/L Lactate Dehydrogenase (333-699) U/L Total Creatine Kinase (35-230) U/L Troponin I ng/mL Total Protein (5.8-8.3) g/dL Albumin (3.0-4.8) g/dL Globulin gm/dL Albumin/Globulin Ratio (1.1-1.8) Triglycerides (35-160) mg/dL Cholesterol (130-200) mg/dL LDL Cholesterol Direct (0-129) mg/dL HDL Cholesterol (29-60) mg/dL Free T4 (0.78-2.19) ng/dL Thyroxine (T4) (5.5-11.0) ug/dL TSH 3rd Generation (0.46-4.68) mIU/mL Urine Opiates Screen (NEGATIVE) Urine Methadone Screen (NEGATIVE) Ur Barbiturates Screen (NEGATIVE) Ur Phencyclidine Scrn (NEGATIVE) Ur Amphetamines Screen (NEGATIVE) U Benzodiazepines Scrn (NEGATIVE) U Oth Cocaine Metabols (NEGATIVE) U Cannabinoids Screen (NEGATIVE) 10/22/16 10/21/16 10/21/16 Range/Units 00:20 23:59 23:21 WBC (4.5-11.0) 10^3/ul RBC (3.5-6.1) 10^6/uL Hgb (14.0-18.0) gm/dL Hct (42.0-52.0) % MCV (80.0-105.0) fL MCH (25.0-35.0) pg MCHC (31.0-37.0) g/dl RDW (11.5-14.5) % Plt Count (120.0-450.0) 10^3/uL MPV (7.0-11.0) fl Gran % (50.0-68.0) % Lymph % (Auto) (22.0-35.0) % [place] % (Auto) (1.0-6.0) % Eos % (Auto) (1.5-5.0) % Baso % (Auto) (0.0-3.0) % Gran # (1.4-6.5) Lymph # (1.2-3.4) [place] # (0.1-0.6) Eos # (0.0-0.7) Baso # (0.0-2.0) K/mm3 Sodium 134 (132-148) mmol/L Potassium 4.2 (3.6-5.0) mmol/L Chloride 100 (98-107) mmol/L Carbon Dioxide 15 L (21-33) mmol/L Anion Gap 23 H (10-20) BUN 38 H (7-21) mg/dL Creatinine 1.4 (0.5-1.4) mg/dL Est GFR ( Amer) > 60 Est GFR (Non-Af Amer) 57 POC Glucose (mg/dL) 346 H (65-110) mg/dL Random Glucose 306 H* D (70-110) mg/dL Hemoglobin A1c 9.2 H (4.2-6.5) % Uric Acid 12.0 H (3.5-8.5) mg/dL Calcium 9.0 (8.4-10.5) mg/dL Phosphorus (2.5-4.5) mg/dL Magnesium (1.7-2.2) mg/dL Total Bilirubin (0.2-1.3) mg/dL Direct Bilirubin (0.0-0.4) mg/dL AST (15-59) U/L ALT (7-56) U/L Alkaline Phosphatase (38-133) U/L Lactate Dehydrogenase (333-699) U/L Total Creatine Kinase (35-230) U/L Troponin I ng/mL Total Protein (5.8-8.3) g/dL Albumin (3.0-4.8) g/dL Globulin gm/dL Albumin/Globulin Ratio (1.1-1.8) Triglycerides 449 H (35-160) mg/dL Cholesterol 188 (130-200) mg/dL LDL Cholesterol Direct 72 (0-129) mg/dL HDL Cholesterol 43 (29-60) mg/dL Free T4 0.91 (0.78-2.19) ng/dL Thyroxine (T4) 4.0 L (5.5-11.0) ug/dL TSH 3rd Generation 0.86 (0.46-4.68) mIU/mL Urine Opiates Screen (NEGATIVE) Urine Methadone Screen (NEGATIVE) Ur Barbiturates Screen (NEGATIVE) Ur Phencyclidine Scrn (NEGATIVE) Ur Amphetamines Screen (NEGATIVE) U Benzodiazepines Scrn (NEGATIVE) U Oth Cocaine Metabols (NEGATIVE) U Cannabinoids Screen (NEGATIVE) 10/21/16 10/21/16 Range/Units 22:48 21:16 WBC (4.5-11.0) 10^3/ul RBC (3.5-6.1) 10^6/uL Hgb (14.0-18.0) gm/dL Hct (42.0-52.0) % MCV (80.0-105.0) fL MCH (25.0-35.0) pg MCHC (31.0-37.0) g/dl RDW (11.5-14.5) % Plt Count (120.0-450.0) 10^3/uL MPV (7.0-11.0) fl Gran % (50.0-68.0) % Lymph % (Auto) (22.0-35.0) % [place] % (Auto) (1.0-6.0) % Eos % (Auto) (1.5-5.0) % Baso % (Auto) (0.0-3.0) % Gran # (1.4-6.5) Lymph # (1.2-3.4) [place] # (0.1-0.6) Eos # (0.0-0.7) Baso # (0.0-2.0) K/mm3 Sodium (132-148) mmol/L Potassium (3.6-5.0) mmol/L Chloride (98-107) mmol/L Carbon Dioxide (21-33) mmol/L Anion Gap (10-20) BUN (7-21) mg/dL Creatinine (0.5-1.4) mg/dL Est GFR ( Amer) Est GFR (Non-Af Amer) POC Glucose (mg/dL) 359 H (65-110) mg/dL Random Glucose (70-110) mg/dL Hemoglobin A1c (4.2-6.5) % Uric Acid (3.5-8.5) mg/dL Calcium (8.4-10.5) mg/dL Phosphorus (2.5-4.5) mg/dL Magnesium (1.7-2.2) mg/dL Total Bilirubin (0.2-1.3) mg/dL Direct Bilirubin (0.0-0.4) mg/dL AST (15-59) U/L ALT (7-56) U/L Alkaline Phosphatase (38-133) U/L Lactate Dehydrogenase (333-699) U/L Total Creatine Kinase (35-230) U/L Troponin I ng/mL Total Protein (5.8-8.3) g/dL Albumin (3.0-4.8) g/dL Globulin gm/dL Albumin/Globulin Ratio (1.1-1.8) Triglycerides (35-160) mg/dL Cholesterol (130-200) mg/dL LDL Cholesterol Direct (0-129) mg/dL HDL Cholesterol (29-60) mg/dL Free T4 (0.78-2.19) ng/dL Thyroxine (T4) (5.5-11.0) ug/dL TSH 3rd Generation (0.46-4.68) mIU/mL Urine Opiates Screen Positive H (NEGATIVE) Urine Methadone Screen Negative (NEGATIVE) Ur Barbiturates Screen Negative (NEGATIVE) Ur Phencyclidine Scrn Negative (NEGATIVE) Ur Amphetamines Screen Negative (NEGATIVE) U Benzodiazepines Scrn Negative (NEGATIVE) U Oth Cocaine Metabols Negative (NEGATIVE) U Cannabinoids Screen Negative (NEGATIVE) Laboratory Results - last 24 hr 10/21/16 10/21/16 10/21/16 21:16 22:48 23:21 WBC RBC Hgb Hct MCV MCH MCHC RDW Plt Count MPV Gran % Lymph % (Auto) [place] % (Auto) Eos % (Auto) Baso % (Auto) Gran # Lymph # [place] # Eos # Baso # Sodium Potassium Chloride Carbon Dioxide Anion Gap BUN Creatinine Est GFR ( Amer) Est GFR (Non-Af Amer) POC Glucose (mg/dL) 359 H 346 H Random Glucose Hemoglobin A1c Uric Acid Calcium Phosphorus Magnesium Total Bilirubin Direct Bilirubin AST ALT Alkaline Phosphatase Lactate Dehydrogenase Total Creatine Kinase Troponin I Total Protein Albumin Globulin Albumin/Globulin Ratio Triglycerides Cholesterol LDL Cholesterol Direct HDL Cholesterol Free T4 Thyroxine (T4) TSH 3rd Generation Urine Opiates Screen Positive H Urine Methadone Screen Negative Ur Barbiturates Screen Negative Ur Phencyclidine Scrn Negative Ur Amphetamines Screen Negative U Benzodiazepines Scrn Negative U Oth Cocaine Metabols Negative U Cannabinoids Screen Negative 10/21/16 10/22/16 10/22/16 23:59 00:20 00:27 WBC RBC Hgb Hct MCV MCH MCHC RDW Plt Count MPV Gran % Lymph % (Auto) [place] % (Auto) Eos % (Auto) Baso % (Auto) Gran # Lymph # [place] # Eos # Baso # Sodium 134 Potassium 4.2 Chloride 100 Carbon Dioxide 15 L Anion Gap 23 H BUN 38 H Creatinine 1.4 Est GFR ( Amer) > 60 Est GFR (Non-Af Amer) 57 POC Glucose (mg/dL) 266 H Random Glucose 306 H* D Hemoglobin A1c 9.2 H Uric Acid 12.0 H Calcium 9.0 Phosphorus Magnesium Total Bilirubin Direct Bilirubin AST ALT Alkaline Phosphatase Lactate Dehydrogenase Total Creatine Kinase Troponin I Total Protein Albumin Globulin Albumin/Globulin Ratio Triglycerides 449 H Cholesterol 188 LDL Cholesterol Direct 72 HDL Cholesterol 43 Free T4 0.91 Thyroxine (T4) 4.0 L TSH 3rd Generation 0.86 Urine Opiates Screen Urine Methadone Screen Ur Barbiturates Screen Ur Phencyclidine Scrn Ur Amphetamines Screen U Benzodiazepines Scrn U Oth Cocaine Metabols U Cannabinoids Screen 10/22/16 10/22/16 10/22/16 01:35 02:39 03:39 WBC RBC Hgb Hct MCV MCH MCHC RDW Plt Count MPV Gran % Lymph % (Auto) [place] % (Auto) Eos % (Auto) Baso % (Auto) Gran # Lymph # [place] # Eos # Baso # Sodium Potassium Chloride Carbon Dioxide Anion Gap BUN Creatinine Est GFR ( Amer) Est GFR (Non-Af Amer) POC Glucose (mg/dL) 264 H 220 H 210 H Random Glucose Hemoglobin A1c Uric Acid Calcium Phosphorus Magnesium Total Bilirubin Direct Bilirubin AST ALT Alkaline Phosphatase Lactate Dehydrogenase Total Creatine Kinase Troponin I Total Protein Albumin Globulin Albumin/Globulin Ratio Triglycerides Cholesterol LDL Cholesterol Direct HDL Cholesterol Free T4 Thyroxine (T4) TSH 3rd Generation Urine Opiates Screen Urine Methadone Screen Ur Barbiturates Screen Ur Phencyclidine Scrn Ur Amphetamines Screen U Benzodiazepines Scrn U Oth Cocaine Metabols U Cannabinoids Screen 10/22/16 10/22/16 10/22/16 04:33 05:51 06:29 WBC RBC Hgb Hct MCV MCH MCHC RDW Plt Count MPV Gran % Lymph % (Auto) [place] % (Auto) Eos % (Auto) Baso % (Auto) Gran # Lymph # [place] # Eos # Baso # Sodium Potassium Chloride Carbon Dioxide Anion Gap BUN Creatinine Est GFR ( Amer) Est GFR (Non-Af Amer) POC Glucose (mg/dL) 205 H 200 H 167 H Random Glucose Hemoglobin A1c Uric Acid Calcium Phosphorus Magnesium Total Bilirubin Direct Bilirubin AST ALT Alkaline Phosphatase Lactate Dehydrogenase Total Creatine Kinase Troponin I Total Protein Albumin Globulin Albumin/Globulin Ratio Triglycerides Cholesterol LDL Cholesterol Direct HDL Cholesterol Free T4 Thyroxine (T4) TSH 3rd Generation Urine Opiates Screen Urine Methadone Screen Ur Barbiturates Screen Ur Phencyclidine Scrn Ur Amphetamines Screen U Benzodiazepines Scrn U Oth Cocaine Metabols U Cannabinoids Screen 10/22/16 10/22/16 07:39 07:40 WBC 11.5 H D RBC 4.77 Hgb 13.5 L Hct 36.3 L MCV 76.1 L MCH 28.3 MCHC 37.2 H RDW 12.9 Plt Count 217 MPV 11.6 H Gran % 78.6 H Lymph % (Auto) 7.7 L [place] % (Auto) 13.4 H Eos % (Auto) 0.2 L Baso % (Auto) 0.1 Gran # 9.03 H Lymph # 0.9 L [place] # 1.5 H Eos # 0.0 Baso # 0.01 Sodium 138 Potassium 2.7 L* D Chloride 105 Carbon Dioxide 22 Anion Gap 14 BUN 24 H Creatinine 1.1 Est GFR ( Amer) > 60 Est GFR (Non-Af Amer) > 60 POC Glucose (mg/dL) 179 H Random Glucose 172 H Hemoglobin A1c Uric Acid Calcium 8.8 Phosphorus 2.2 L Magnesium 2.5 H Total Bilirubin 0.8 Direct Bilirubin 0.5 H AST 21 ALT 24 Alkaline Phosphatase 108 Lactate Dehydrogenase 402 Total Creatine Kinase 123 Troponin I 0.02 D Total Protein 6.8 Albumin 3.8 Globulin 3.0 Albumin/Globulin Ratio 1.3 Triglycerides Cholesterol LDL Cholesterol Direct HDL Cholesterol Free T4 Thyroxine (T4) TSH 3rd Generation Urine Opiates Screen Urine Methadone Screen Ur Barbiturates Screen Ur Phencyclidine Scrn Ur Amphetamines Screen U Benzodiazepines Scrn U Oth Cocaine Metabols U Cannabinoids Screen EKG/Cardiology Studies: Cardiology / EKG Studies 10/21/16 19:55 EKG [ELECTROCARDIOGRAM] Stat Comment: Reason For Exam: DKA 10/22/16 07:00 EKG [ELECTROCARDIOGRAM] DAILY Comment: Reason For Exam: chest pain Critical Care Progress Note - Nutrition Nutrition: Nutrition Category Date Time Status Consistent Carbohydrate [DIET] Diets 10/22/16 Lunch Ordered Addendum Addendum: 10/22/16 15:10 patient was seen and examined at bedside with dr. Taveras. please see Dr. Ferrara's note
[2016-10-22] MEDS ORDERED: Vancomycin 1gm in NS 250ml 250 ML IVPB STA (11:39)
--- NOTE | 2016-10-22 11:39 | CP.PCM.CON ---
History of Present Illness - History of Present Illness History of Present Illness: 36 year old male with PMH of DM with diabetic neuropathy and history of diabetic ketoacidosis on insulin therapy came in to [facility] because of a 3 day history of worsening generalized weakness, nausea and episodes of non-bilious vomiting, chills and lightheadedness. The patient also experienced anorexia. The patient states that he has mild non-productive cough since 3 days ago as well but is not coughing much anymore. Because he was not feeling well 3 days ago, he did not go out of his house to buy his insulin and has not been taking insulin since then. He is unsure if he had fever. The patient denies headache, no sore throat, no rhinorrhea, no dysphagia, vague abdominal discomfort, denies diarrhea, no dysuria or hematuria. In the ED, he was noted to have diabetic ketoacidosis and also had leukocytosis. Infectious Diseases consult is requested to further evaluate and manage. Social history: Patient smokes half-a-pack of cigarettes a day for many years, uses marijuana almost daily, occasional alcohol beverage drinker; he lives at home alone and has not traveled outside of [place] in the past 3 months; no animal contacts Review of Systems - Review of Systems All systems: reviewed and no additional remarkable complaints except (as per HPI ) Past Patient History - Infectious Disease Hx of Infectious Diseases: None - Tetanus Immunizations Tetanus Immunization: Unknown - Past Social History Smoking Status: Heavy Smoker > 10 Cigarettes Daily - CARDIAC Hx Hypertension: Yes - PULMONARY Hx Respiratory Disorders: No Hx Asthma: No Hx Bronchitis: No Hx Chronic Obstructive Pulmonary Disease (COPD): No Hx Emphysema: No - NEUROLOGICAL Hx Neurological Disorder: No Hx Alzheimer's Disease: No HX Cerebrovascular Accident: No Hx Dementia: No Hx Migraine: No Hx Parkinson's Disease: No Hx Seizures: No Hx Transient Ischemic Attacks (TIA): No - HEENT Hx HEENT Problems: No Hx Blind: No Hx Cataracts: No Hx Deafness: No Hx Difficulty Chewing: No Hx Epistaxis: No Hx Glaucoma: No Hx Macular Degeneration: No - RENAL Hx Chronic Kidney Disease: No Hx Renal Failure: No - ENDOCRINE/METABOLIC Hx Diabetes Mellitus Type 1: Yes Hx Diabetes Mellitus Type 2: Yes Hx Hyperthyroidism: No Hx Hypothyroidism: No - HEMATOLOGICAL/ONCOLOGICAL Hx Blood Disorders: No Hx Anemia: No Hx Cancer: No Hx Hepatitis A: No Hx Hepatitis B: No Hx Hepatitis C: No - INTEGUMENTARY Hx Dermatological Problems: No Hx Basil Cell: No Hx Eczema: No Hx Melanoma: No Hx Psoriasis: No Hx Squamous Cell: No - MUSCULOSKELETAL/RHEUMATOLOGICAL Hx Musculoskeletal Disorders: No Hx Arthritis: No - GASTROINTESTINAL Hx Gastrointestinal Disorders: No Hx Crohn's Disease: No Hx Diverticulitis: No Hx Gastroesophageal Reflux: No Hx Liver Failure: No - GENITOURINARY/GYNECOLOGICAL Hx Genitourinary Disorders: No Hx Hematuria: No Hx Incontinence: No Hx Prostate Problems: No Hx Sexually Transmitted Disorders: No Hx Urinary Tract Infection: No - PSYCHIATRIC Hx Psychophysiologic Disorder: No Hx Depression: No Hx Emotional Abuse: No Hx Physical Abuse: No Hx Substance Use: Yes - SURGICAL HISTORY Hx Amputation: No Hx Appendectomy: No Hx Cardiac Catheterization: No Hx Cholecystectomy: No Hx Coronary Stent: No Hx Gastric Bypass Surgery: No Hx Hysterectomy: No Hx Joint Replacement: No Hx Kidney Transplant: No Hx Liver Transplant: No Hx Mastectomy: No Hx Open Heart Surgery: No Hx Orthopedic Surgery: No Hx Splenectomy: No Hx Valve Replacement: No - ANESTHESIA Hx Anesthesia: No Hx Anesthesia Reactions: No Hx Malignant Hyperthermia: No Meds Allergies/Adverse Reactions: Allergies Allergy/AdvReac Type Severity Reaction Status Date / Time No Known Allergies Allergy Verified 09/24/14 18:43 - Medications Medications: Current Medications Albuterol/Ipratropium (Duoneb 3 Mg/0.5 Mg (3 Ml) Ud) 3 ml IH [id number] [facility] Stop: 10/29/16 02:01 Last Admin: 10/21/16 22:29 Dose: 3 ml Aspirin (Ecotrin) 81 mg PO DAILY [facility] Enoxaparin Sodium (Lovenox) 40 mg SC DAILY [facility] PRN Reason: Protocol Gabapentin (Neurontin) 300 mg PO BID [facility] Sodium Chloride (Sodium Chloride 0.9%) 1,000 mls @ 999 mls/hr IV .Q1H1M [facility] Stop: 10/22/16 02:00 Last Admin: 10/21/16 21:07 Dose: 999 mls/hr Sodium Chloride (Sodium Chloride 0.9%) 1,000 mls @ 100 mls/hr IV .Q10H [facility] Insulin Human Regular 100 (units/ Sodium Chloride) 100 mls @ 4 mls/hr IV .Q24H PRN; Protocol; 4 UNITS/HR PRN Reason: TITRATE PER PROTOCOL Last Admin: 10/21/16 23:30 Dose: 4 mls/hr Piperacillin Sod/Tazobactam Sod (Zosyn 2.25 Gm In 0.9% 100 Ml) 100 mls @ 100 mls/hr IVPB Q6 [facility] PRN Reason: Protocol Stop: 10/28/16 00:01 Metoclopramide HCl (Reglan) 10 mg IVP ACHS [facility] Last Admin: 10/21/16 22:29 Dose: 10 mg Nicotine (Nicoderm Cq) 1 patch TD DAILY [facility] Ondansetron HCl (Zofran Inj) 4 mg IVP Q4H PRN PRN Reason: Nausea/Vomiting Pantoprazole Sodium (Protonix Inj) 40 mg IVP Q12 [facility] Last Admin: 10/21/16 22:29 Dose: 40 mg Physical Exam - Constitutional Appears: Non-toxic, No Acute Distress - Head Exam Head Exam: NORMAL INSPECTION - ENT Exam ENT Exam: Mucous Membranes Moist, Normal Oropharynx - Neck Exam Neck exam: Negative for: Lymphadenopathy, Meningismus - Respiratory Exam Respiratory Exam: Decreased Breath Sounds. absent: Rales, Rhonchi - Cardiovascular Exam Cardiovascular Exam: +S1, +S2 - GI/Abdominal Exam GI & Abdominal Exam: Soft. absent: Tenderness - Skin Additional comments: no rash or wounds noted Results - Vital Signs Recent Vital Signs: Last Vital Signs Temp 97.7 F 10/21/16 17:10 Pulse 72 10/21/16 21:40 Resp 17 10/21/16 21:40 BP 150/88 10/21/16 21:40 Pulse Ox 98 10/21/16 21:40 - Labs Result Diagrams: 10/22/16 07:40 10/22/16 07:40 Labs: Laboratory Results - last 24 hr 10/21/16 10/21/16 21:16 22:48 POC Glucose (mg/dL) 359 H Urine Opiates Screen Positive H Urine Methadone Screen Negative Ur Barbiturates Screen Negative Ur Phencyclidine Scrn Negative Ur Amphetamines Screen Negative U Benzodiazepines Scrn Negative U Oth Cocaine Metabols Negative U Cannabinoids Screen Negative Assessment & Plan - Assessment and Plan (Free Text) Plan: Assessment Systemic Inflammatory Response Syndrome (leukocytosis, tachycardia), consider secondary to acute stressful event ie. diabetic ketoacidosis, probably from non- compliance, R/O sepsis, source to be determined DM with diabetic neuropathy and history of diabetic ketoacidosis on insulin therapy Plan Patient one dose of IV Vancomycin and started on Zosyn pending blood, urine cx, urinalysis, PCT; CT chest, abdomen and pelvis did not reveal acute pathology Will monitor clinically
[2016-10-22] MEDS: Insulin Lispro (humaLOG) LOW Coverage SC SCH ×2 (12:21→16:47)
--- NOTE | 2016-10-22 12:21 | PN ---
DATE: 10/22/2016 LOCATION: ICU bed 3. The patient is seen lying in the bed. The patient stated that he is feeling b ulysses since yesterday. The patient is presently on insulin drip. On a protocol. PHYSICAL EXAMINATION: VITAL SIGNS: T-max 98.1. Telemetry shows sinus rhythm, heart rate 69-74, blood pressure 138/67; 128 /55; 127/67; 142/81; 168/75; 150/88, respirations averaging in 19s and 20s. O2 sat 97-100%. INTAKE/OUTPUT: Intake 1750. Output 2400. HEAD: Normocephalic, atraumatic. HEENT: Shows dry oral mucosa. Questionable ketone, acetone breath noted. Dry oral mucosa. NECK: No neck rigidity. CHEST: Symmetrical. LUNGS: Shows occasional rhonchi. CARDIOVASCULAR: S1, S2, regular rhythm. ABDOMEN: Soft, positive bowel sounds, resolved epigastric periumbilical tenderness. No costovertebr al angle tenderness. GENITALIA: Male. RECTAL: Deferred. EXTREMITIES: Shows no pitting edema, no calf tenderness, no Homans' sign. NEUROLOGIC: The patient is alert, awake, responsive, follows commands. Moves upper and lower extrem ities without assistance. GAIT: Deferred. MUSCULOSKELETAL: Shows a body mass index of 23. Motor strength is 5/5 in upper and lower extremitie s. PSYCHIATRIC: Negative for anxiety, depression. Negative for suicidal or homicidal ideation, negativ e for auditory hallucination. VASCULAR: Palpable pulses. DIAGNOSTICS: 10/22/2016, WBC is down to 11.5 from 22,000, hemoglobin is down from 13.5 and 36.3 from 17 and 46.2. Platelet 217, granulocytes 79% segs. Sodium is 138 from 125, potassium is down to 2.7 from 6.2, chloride 105, CO2 is now up to 22 from 8, anion gap is down to 14 from 34, BUN is down to 2 4 from 48, creatinine is down to 1.1 from 2.0. GFR greater than 60. Random glucose 548; 306; 172. Uric acid is 12.0, calcium 8.8, phosphorus 2.2, magnesium 2.5. Troponin is negative, 2 sets. Trigly ceride 449, cholesterol 198, LDL 72, HDL 43. TSH 0.86. T4 is low at 4.0. The patient's microbiology negative. CT of the chest, abdomen and pelvis is reviewed and noted. EKG is not done today. EKG from yesterday shows sinus rhythm, sinus bradycardia. Nonspecific ST changes. The patient seen by grain mixer last night. IMPRESSION AND PLAN: 1. Uncontrolled decompensated type 1 insulin-dependent diabetes mellitus with diabetic ketoacidosis and severe dehydration and spurious hyponatremia and non-hemolyzed hyperkalemia. 2. Hypertension. 3. Questionable sepsis versus systemic inflammatory response syndrome with leukocytosis, granulocyto sis and bandemia. 4. Mild normocytic anemia. 5. Granulocytosis. 6. Non-hemolyzed hyperkalemia. 7. Increased anion gap metabolic acidosis. 8. Acute kidney injury. 9. Status post non-hemolyzed hyperkalemia. 10. Hypokalemia. 11. Acute kidney injury with increased anion gap metabolic acidosis and lactic acidosis. 12. Hyperuricemia. 14. Lactic acidosis. 15. Hyperuricemia. 16. Hypokalemia, hypophosphatemia. 17. Hypertriglyceridemia and hypercholesterolemia. 18. Glycosuria and microscopic hematuria, trace bacteriuria. 19. Bilateral adrenal gland tickling etiology undetermined. 20. Small hiatal hernia. 21. Colonic fecal stasis. 22. Diverticulosis. 23. Degenerative joint disease of the spine. 24. Apical pulmonary blebs with bibasilar atelectasis and left apical granuloma. 25. History of diabetic neuropathy, history of diabetic ketoacidosis. 26. Questionable ileus. 27. History of hypertension and diabetic neuropathy. 28. Increased anion gap metabolic acidosis with lactic acidosis and diabetic ketoacidosis. 29. Tachycardia. 30. Acute kidney injury and acute renal failure (resolving). 31. Hypochloremic hyponatremia. 32. Glycosuria, ketonuria, microscopic hematuria and bacteriuria. PLAN: At this time, patient seen by grain mixer, Dr. Alejandra Mejia. Her recommendations are reviewe d. The patient is to be continued on hydration with insulin drip. Serial chemistries ordered. Diab etic nurse educator and unit educator and dietitian evaluation is to be ordered. The patient has been updated about his condition. The patient has been told about the risk and consequences of DKA including loss of vision, loss of limb, renal failure, diabetes. Coronary and neurological consequen cinthya also explained to the patient in layman's language, which he acknowledged and understand. Tyree ervin, the patient is to be continued in ICU with insulin drip to be continued. Serial labs have been ordered. Blood cultures, throat cultures, urine cultures are pending. The patient has also been req uested to be seen by infectious disease and endocrinology. His procalcitonin level is pending. CURRENT MEDICATIONS: The patient is presently on D5 half at 450 mL an hour. The patient is started on DuoNeb nebulizer ev trip 6 hours, Ecotrin 81 daily, Humalog low dose a.c. and at bedtime. The patient is on insulin drip. The patient's potassium and phosphorus are supplemented. Patient was given Levemir 14 units 1 dose today in the morning. Lipitor has been started 20 mg daily. Lovaza 2 grams twice a day. Lovenox 4 0 mg subQ daily. Neurontin 300 twice a day. Nicotine patch 21 mg daily. The patient has been order ed K-riders and K-phos riders, Protonix 40 IV q. 12, Reglan 10 mg IV push a.c. and bedtime. The pat ient is on Zofran 4 IV q. 4, Zosyn 2.25 grams q. 6 hours. Repeat EKG ordered. The patient is to be started on diabetic diet. At present, the patient is to be continued in intensive care unit, until p atient is on IV insulin drip and patient is stabilized. We will await further recommendation by infe ctious disease and endocrinology regarding further management. Time spent in the entire management, more than 35 minutes. Dictated and electronically signed, not read. Sanjeev Burciaga MD cc: [phone] TT: 10/22/2016 12:20:25 Confirmation # [id number] Dictation # [id number]
[2016-10-22] MEDS: Omega-3-Acid Ethyl Esters 1 GM Cap PO SCH ×2 (12:29→17:25)
[2016-10-22 15:53] LABS: TROPONIN I < 0.01 ng/mL
[2016-10-22 17:31] LABS: BLOOD UREA NITROGEN 16 mg/dL (7-21); CALCIUM 8.2 mg/dL (8.4-10.5); CARBON DIOXIDE 21 mmol/L (21-33); CHLORIDE 101 mmol/L (98-107); GFR AFRICAN-AMERICAN > 60; GLUCOSE,RANDOM 233 mg/dL (70-110); POTASSIUM 3.3 mmol/L (3.6-5.0); SODIUM 132 mmol/L (132-148)
--- NOTE | 2016-10-22 18:03 | CARD ---
APPROVED REPORT EKG Measurement Heart [id number] <Conclusion> Sinus bradycardia Nonspecific T wave abnormality Abnormal ECG
--- NOTE | 2016-10-22 18:09 | CARD ---
APPROVED REPORT EKG Measurement Heart [id number] <Conclusion> Sinus rhythm with marked sinus arrhythmia Early repolarization Otherwise normal ECG
--- NOTE | 2016-10-22 20:02 | PN ---
DATE: 10/22/2016 LOCATION: CCU 128, room 3. This is a 36-year-old male with recent uncontrolled type 1 insulin-dependent diabetes, presenting her e with diabetic ketoacidosis and dehydration and is now being followed closely for metabolic manageme nt. He received initial intensive insulin therapy with an insulin drip infusion given overnight as n oted and today has resolved anion gap and ketoacidosis as noted. The latest chemistries include a BU N of 24, sodium 138, potassium 2.7, chloride 105, CO2 of 22, glucose 172 and creatinine 1.1. His glu cose values have ranged from 167-179 and 200 mg/dL. ASSESSMENT: This is a 36-year-old male with uncontrolled and decompensated type 1 insulin-dependent diabetes with diabetic ketoacidosis with resolved metabolic acidosis and received vigorous IV hydrati on and intensive insulin therapy as noted. PLAN OF MANAGEMENT: Will continue the vigorous IV hydration at this time and also switch him over to a basal and bolus insulin regimen as his oral intake improves accordingly. Will continue the low-do se correction scale using Humalog insulin as given and will observe his glycemic fluctuations and sta rt him on a basal and bolus insulin combination as indicated. Will obtain serial chemistries and sup plement accordingly as needed. Will follow. Alejandra Mejia MD cc: [id number] TT: 10/22/2016 20:02:38 Confirmation # [id number] Dictation # [id number] dn
[2016-10-22] MEDS ORDERED: Insulin Detemir 100 units/ml Vial (Levemir) SC SCH (22:00)
[2016-10-22] MEDS: Sodium Chloride 0.45% 1,000 ML IV SCH (23:39)
[2016-10-23] MEDS: Albuterol-Ipratrop 3 mg / 0.5 (3 ml) UD IH SCH ×5 (00:58→20:21)
[2016-10-23] MEDS: Piperacillin/Tazobact 2.25gm 100 ML IVPB SCH ×3 (01:05→12:26)
[2016-10-23 06:44] LABS: ADD MANUAL DIFF? NO
[2016-10-23 07:12] LABS: ALB/GLOB RATIO 1.2 (1.1-1.8); ALKALINE PHOSPHATASE 87 U/L (38-133); ALT/SGPT 32 U/L (7-56); AST/SGOT 28 U/L (15-59); BILIRUBIN,DIRECT 0.3 mg/dL (0.0-0.4); BILIRUBIN,TOTAL 0.8 mg/dL (0.2-1.3); BLOOD UREA NITROGEN 9 mg/dL (7-21); CALCIUM 8.4 mg/dL (8.4-10.5); CARBON DIOXIDE 26 mmol/L (21-33); CHLORIDE 103 mmol/L (98-107); GFR AFRICAN-AMERICAN > 60; GLUCOSE,RANDOM 206 mg/dL (70-110); MAGNESIUM 2.2 mg/dL (1.7-2.2); PHOSPHOROUS 1.6 mg/dL (2.5-4.5); POTASSIUM 3.1 mmol/L (3.6-5.0); SODIUM 134 mmol/L (132-148)
[2016-10-23 07:14] LABS: BASO # 0.01 K/mm3 (0.0-2.0); BASO % 0.1 % (0.0-3.0); EOS # 0.1 (0.0-0.7); EOS % 0.7 % (1.5-5.0); GRAN # 5.14 (1.4-6.5); GRAN % 66.9 % (50.0-68.0); HEMATOCRIT 34.4 % (42.0-52.0); LYMPH # 1.6 (1.2-3.4); LYMPH % 20.2 % (22.0-35.0); MEAN CELL VOLUME 76.4 fL (80.0-105.0); MEAN CORPUSCULAR HEMOGLOBIN 28.2 pg (25.0-35.0); MEAN CORPUSCULAR HGB CONC 36.9 g/dl (31.0-37.0); MEAN PLATELET VOLUME 12.2 fl (7.0-11.0); MONO # 0.9 (0.1-0.6); MONO % 12.1 % (1.0-6.0); PLATELET COUNT 171 10^3/uL (120.0-450.0); RED CELL DISTRIBUTION WIDTH 12.9 % (11.5-14.5); WHITE BLOOD COUNT 7.7 10^3/ul (4.5-11.0)
[2016-10-23] MEDS: Insulin Lispro 1 UNITS/0.01 ML SC SCH ×3 (08:06→17:01)
[2016-10-23] MEDS ORDERED: Potassium Phosphate 15 MMOLE in Sodium Chloride 0.9% 250 ML IVPB ONE (08:39)
[2016-10-23] MEDS: Sodium Chloride 0.45% 1,000 ML IV SCH (09:28)
[2016-10-23] MEDS: Potassium Chloride 20 mEq 100 ML IVPB SCH ×3 (09:29→16:35)
[2016-10-23] MEDS: Omega-3-Acid Ethyl Esters 1 GM Cap PO SCH ×2 (09:32→17:02)
[2016-10-23] MEDS: Enoxaparin 40 mg Syringe SC SCH (09:33)
[2016-10-23] MEDS: Insulin Lispro (humaLOG) LOW Coverage SC SCH ×3 (09:33→17:01)
[2016-10-23] MEDS ORDERED: Potassium & Sodium Phosphate PO SCH (10:00)
--- NOTE | 2016-10-23 14:51 | PN ---
DATE: 10/23/2016 SUBJECTIVE: The patient is seen in room 560, bed 2. The patient is seen lying in the bed, and ruby nt has been seen ambulating to the bathroom. The patient was transferred out of the ICU yesterday. No adverse event documented overnight. The patient was seen by Leanna Hanson, [facility] sl[facility]. PHYSICAL EXAMINATION: VITAL SIGNS: T-max 98.1, heart rate 74, 62, 52, 54, 63, respirations 18-20, blood pressure 109/63, 1 28/61, 136/65, 145/68, respirations 18-20, O2 saturation 100%. HEAD: Normocephalic, atraumatic. HEENT: Shows pink conjunctivae, anicteric sclerae. No oropharyngeal lesion. NECK: No neck rigidity. Dry oral mucosa. No neck rigidity. CHEST: Symmetrical. LUNGS: Shows no rales, crackles, or wheezing. CARDIOVASCULAR: Shows S1, S2, regular rhythm. ABDOMEN: Soft, no epigastric, no periumbilical tenderness. No costovertebral angle tenderness. GENITALIA: Male. RECTAL: Deferred. EXTREMITIES: Shows no pitting edema, no calf tenderness, no Homans sign. NEUROLOGIC: The patient is alert, awake, oriented x 3. Cranial nerves II-XII intact. GAIT: Independent. VASCULAR: Palpable pulses. PSYCHIATRIC: Negative for anxiety, depression. Negative for suicidal or homicidal ideation. Negati ve for auditory or visual hallucinations. DIAGNOSTICS: 10/23: WBC 7.7, came down from 22,000; hemoglobin and hematocrit 12.7 and 34.4, came d own from 16.9 and 46.2; platelets 177. Chemistries: Sodium 134, potassium 3.1, chloride 103, CO2 of 26, anion gap 8, BUN 9, creatinine 0.8, GFR greater than 60, glucose 206, point of contact glucose 2 81, 281, 233, 172, 206. Hemoglobin A1c 9.2. Fructosamine is 479. Magnesium 1.6. LFTs are normal. Troponin all sets are negative. Triglyceride 449, cholesterol 188, LDL 72. Procalcitonin level is 0.21. MICROBIOLOGY: Blood cultures, throat cultures negative. The patient's CT of the chest, abdomen and pelvis noted. EKG noted. IMPRESSION AND PLAN: 1. Diabetic ketoacidosis with uncontrolled and decompensated type 1 insulin-requiring diabetes mellit us with diabetic ketoacidosis and severe dehydration and spurious hyponatremia, non-hemolyzed hyperka lemia. 2. Questionable hypertension. 3. Systemic inflammatory response syndrome. 4. Transient asymptomatic bradycardia. 5. Transient hypertension (resolved). 6. Leukocytosis with granulocytosis and bandemia. 7. Normocytic anemia. 8. Lactic acidosis. 9. Increased anion gap metabolic acidosis. 10. Hyponatremia. 11. Nonhemolyzed hyperkalemia (resolved). 12. Increased anion gap metabolic acidosis and lactic acidosis. 13. Acute kidney injury. 14. Uncontrolled insulin-requiring diabetes mellitus with hemoglobin A1c of 9.2 and fructosamine of g reater than 470. 15. Lactic acidosis. 16. Hyperuricemia. 17. Hypertriglyceridemia, hypercholesterolemia 18. Hypokalemia, hypophosphatemia. 19. Hypomagnesemia. 20. Glycosuria, ketonuria. 21. Early repolarization changes on the EKG. 22. Accessory spleen. 23. Nonspecific bilateral adrenal gland thickening, left more than the right. 24. Small hiatal hernia. 25. Colonic fecal stasis. 26. Colonic diverticulosis. 27. Degenerative joint disease of the spine. 28. Right apical pulmonary bleb with bibasilar atelectasis and left apical small granuloma. 29. Left upper lobe peripheral scarring. 30. Systemic inflammatory response syndrome with leukocytosis, tachycardia. 31. Diabetic neuropathy. 32. Possible noncompliance. 33. Non-hemolyzed hyperkalemia (resolved). 34. Increased anion gap metabolic acidosis with lactic acidosis. 35. Glycosuria microscopic hematuria, trace bacteriuria. 36. Hypochloremic hyponatremia. 37. History of nicotine, alcohol and marijuana use. PLAN: At this time, patient has been ordered serial labs. The patient's potassium and phosphorus morton pplementation has been ordered. The patient's repeat CBC has been ordered. The patient is currently seen by endocrinology and infectious disease. Their recommendations are noted. The patient was see n by the sawyer cork slabs. CURRENT MEDICATIONS AND TREATMENT PLAN: 1. IV fluid half normal saline at 125 mL an hour. 2. DuoNeb nebulizer every 6 hours. 3. Aspirin 81 mg daily. 4. Humalog low dose sliding scale coverage a.c. and at bedtime. 5. The patient has been started on Levemir 20 units at bedtime. 6. Lipitor 20 mg at bedtime. 7. Lovaza 2 grams twice a day, Lovenox 40 mg subQ daily for DVT prophylaxis. 8. Neurontin 300 mg twice a day. 9. Nicotine patch 21 mg daily. 10. The patient is ordered a K-PHOS rider x 1. 11. The patient is on Protonix 40 IV q.12, Reglan 10 mg IV a.c. and at bedtime, Zofran 4 mg IV q. 4 p .r.n. 12. Zosyn 2.25 g IV q. 6. 13. Allopurinol 300 mg daily. 14. The patient is also started on Humalog 6 units with a.c. meals with Levemir 20 units at bedtime. The patient's point of contact glucose has being reviewed to 281, 281, 179, 167, 200, 205, 210, 220. The patient seen by Leanna Hanson, the sawyer [employer] slabs. The patient takes Lantus insulin at h ome at bedtime and 70/30 insulin before breakfast and dinner. The patient apparently has been out of his insulin at home. At this time, patient is to be continued on the above therapeutic intervention as per infectious dise ase and endocrinology. The patient's further management will be dependent upon the patient's clinica l condition, hemodynamic status, and as per patient's response to therapeutic intervention. The shanice ent's discharge disposition is dependent upon the duration of IV antibiotics as per infectious diseas e and further recommendations by endocrinology and infectious disease. The patient will be considere d for discharge soon once cleared by endocrinology and infectious disease. At present, the patient w as updated about his condition, diagnosis, treatment plan, management plan and recommendation by all the physicians involved in the care of the patient. All the above was discussed and explained to the patient in layman's language. The patient was encouraged and advised to be out of bed and ambulate on the floor. Dictated and electronically signed, not read. Sanjeev Burciaga MD cc: [phone] TT: 10/23/2016 14:50:59 Confirmation # [id number] Dictation # [id number] mn
--- NOTE | 2016-10-23 15:58 | CP.PCM.PN ---
Subjective - Date & Time of Evaluation Date of Evaluation: 10/23/16 Time of Evaluation: 14:50 - Subjective Subjective: Comfortable, not in distress, no fevers, no abdominal pain. Objective - Vital Signs/Intake and Output Vital Signs (last 24 hours): Temp Pulse Resp BP Pulse Ox 98.1 F 50 L 18 109/63 100 10/23/16 08:56 10/23/16 08:56 10/23/16 08:56 10/23/16 08:56 10/23/16 08:56 Intake and Output: 10/23/16 10/23/16 06:59 18:59 Intake Total 840 800 Output Total 2250 1000 Balance -1410 -200 - Medications Medications: Current Medications Albuterol/Ipratropium (Duoneb 3 Mg/0.5 Mg (3 Ml) Ud) 3 ml [id number] [facility] Stop: 10/29/16 02:01 Last Admin: 10/23/16 13:03 Dose: 3 ml Allopurinol (Zyloprim) 300 mg PO DAILY [facility] Aspirin (Ecotrin) 81 mg PO DAILY [facility] Last Admin: 10/23/16 09:33 Dose: 81 mg Atorvastatin Calcium (Lipitor) 20 mg PO DIN [facility] Last Admin: 10/22/16 16:49 Dose: 20 mg Enoxaparin Sodium (Lovenox) 40 mg SC DAILY [facility] PRN Reason: Protocol Last Admin: 10/23/16 09:33 Dose: 40 mg Gabapentin (Neurontin) 300 mg PO BID [facility] Last Admin: 10/23/16 09:33 Dose: 300 mg Piperacillin Sod/Tazobactam Sod (Zosyn 2.25 Gm In 0.9% 100 Ml) 100 mls @ 100 mls/hr IVPB Q6 [facility] PRN Reason: Protocol Stop: 10/28/16 00:01 Last Admin: 10/23/16 12:26 Dose: 100 mls/hr Sodium Chloride (Sodium Chloride 0.45%) 1,000 mls @ 125 mls/hr IV .Q8H [facility] Last Admin: 10/23/16 09:28 Dose: 125 mls/hr Insulin Detemir (Levemir) 30 unit SC HS [facility] Insulin Human Lispro (Humalog Low) 0 units SC ACHS [facility] PRN Reason: Protocol Last Admin: 10/23/16 11:38 Dose: Not Given Insulin Human Lispro (Humalog) 12 units SC AC [facility] Metoclopramide HCl (Reglan) 10 mg IVP ACHS [facility] Last Admin: 10/23/16 12:25 Dose: 10 mg Nicotine (Nicoderm Cq) 1 patch TD DAILY [facility] Last Admin: 10/23/16 09:33 Dose: 1 patch [id number]-1-Ulcq Ethyl Esters (Lovaza) 2 gm PO BID [facility] Last Admin: 10/23/16 09:32 Dose: 2 gm Ondansetron HCl (Zofran Inj) 4 mg IVP Q4H PRN PRN Reason: Nausea/Vomiting Pantoprazole Sodium (Protonix Inj) 40 mg IVP Q12 [facility] Last Admin: 10/23/16 09:32 Dose: 40 mg - Labs Labs: 10/23/16 06:30 10/23/16 06:30 PT 12.0 Seconds (9.9-11.8) H 10/21/16 00:15 INR 1.11 (0.93-1.08) H 10/21/16 00:15 APTT 26.9 Seconds (23.7-30.8) 10/21/16 00:15 - Constitutional Appears: Non-toxic, No Acute Distress - Head Exam Head Exam: NORMAL INSPECTION - ENT Exam ENT Exam: Mucous Membranes Moist - Neck Exam Neck Exam: absent: Lymphadenopathy, Meningismus - Respiratory Exam Respiratory Exam: Decreased Breath Sounds - Cardiovascular Exam Cardiovascular Exam: +S1, +S2 - GI/Abdominal Exam GI & Abdominal Exam: Soft. absent: Tenderness Assessment and Plan - Assessment and Plan (Free Text) Plan: ssessment Systemic Inflammatory Response Syndrome (leukocytosis, tachycardia), consider secondary to acute stressful event ie. diabetic ketoacidosis, probably from non- compliance; currently no source of sepsis identified DM with diabetic neuropathy and history of diabetic ketoacidosis on insulin therapy Plan will d/c Zosyn and observe; PCT is only 0.14, blood cx negative, urinalysis does not suggest infection, CT chest, abdomen and pelvis also do not show infection Will monitor clinically
--- NOTE | 2016-10-23 16:03 | PN ---
DATE: 10/23/2016 ROOM: 560 This is a 36-year-old male with uncontrolled and decompensated type 1 insulin-dependent diabetes, pre senting here with diabetic ketoacidosis and dehydration and received intensive insulin therapy with a n insulin drip infusion and vigorous IV hydration and has since then improved clinically and metaboli shelbi as noted thereof. His glycemic fluctuations are still present, but have improved otherwise, and today's glucose values have ranged from 206-281 mg/dL. The latest chemistry showed a BUN of 9, sodium 134, potassium 3.1, c hloride 103, CO2 26, glucose 206 and creatinine 0.8. In fact, the latest glucose level done before l unch was 269 mg/dL. So at this time, we will modify his basal and bolus insulin regimen and increase the Humalog to 12 un its subQ t.i.d. before meals to start at dinnertime today as ordered. We will also continue the low- dose correction scale using Humalog insulin as given to obviate hypoglycemia and detailed orders have been given. We will increase the basal insulin given overnight with Levemir given as 30 units subQ at bedtime daily to start tonight. We will titrate incrementally as indicated to optimize metabolic control. We will also consult our diabetic nurse educator to reinforce diabetic education and dietar y instructions at the time of this admission. We will obtain serial chemistries and supplement [place] as needed. We will follow. Alejandra Mejia MD cc: [id number] TT: 10/23/2016 16:02:25 Confirmation # [id number] Dictation # [id number]
[2016-10-23] MEDS ORDERED: Potassium Chloride 20 mEq ER Tab PO STA (16:09)
--- NOTE | 2016-10-23 21:47 | CP.PCM.PN ---
Subjective - Date & Time of Evaluation Date of Evaluation: 10/23/16 Time of Evaluation: 21:46 - Subjective Subjective: S:Patient was seen at bedside. FSBS was 463 mg%. States that he had had extra food . He had 3 chicken nuggets and milk shake from [employer]. Has no complaints now. Denies blurry vision, increased thirst , headaches, increase urine. Pertinent medical record was reviewed. O: Last Vital Signs 3 Temp 97.4 F L 10/23/16 16:00 Pulse 55 L 10/23/16 16:00 Resp 18 10/23/16 16:00 BP 147/86 10/23/16 16:00 Pulse Ox 100 10/23/16 16:00 Awake, alert, not in distress. LUNGS:Normal breathing pattern. NEURO:Speech normal. A:Hyperglycemia. P:Regular insulin 10 Units SC was ordered. Objective - Vital Signs/Intake and Output Vital Signs (last 24 hours): Temp Pulse Resp BP Pulse Ox 97.4 F L 55 L 18 147/86 100 10/23/16 16:00 10/23/16 16:00 10/23/16 16:00 10/23/16 16:00 10/23/16 16:00 Intake and Output: 10/23/16 10/24/16 18:59 06:59 Intake Total 800 Output Total 1000 Balance -200 - Medications Medications: Current Medications Albuterol/Ipratropium (Duoneb 3 Mg/0.5 Mg (3 Ml) Ud) 3 ml IH [id number] [facility] Stop: 10/29/16 02:01 Last Admin: 10/23/16 20:21 Dose: 3 ml Allopurinol (Zyloprim) 300 mg PO DAILY [facility] Last Admin: 10/23/16 17:02 Dose: 300 mg Aspirin (Ecotrin) 81 mg PO DAILY [facility] Last Admin: 10/23/16 09:33 Dose: 81 mg Atorvastatin Calcium (Lipitor) 20 mg PO DIN [facility] Last Admin: 10/23/16 17:01 Dose: 20 mg Enoxaparin Sodium (Lovenox) 40 mg SC DAILY [facility] PRN Reason: Protocol Last Admin: 10/23/16 09:33 Dose: 40 mg Gabapentin (Neurontin) 300 mg PO BID [facility] Last Admin: 10/23/16 17:04 Dose: 300 mg Sodium Chloride (Sodium Chloride 0.45%) 1,000 mls @ 125 mls/hr IV .Q8H [facility] Last Admin: 10/23/16 09:28 Dose: 125 mls/hr Insulin Detemir (Levemir) 30 unit SC HS [facility] Insulin Human Lispro (Humalog Low) 0 units SC ACHS [facility] PRN Reason: Protocol Last Admin: 10/23/16 17:01 Dose: 2 units Insulin Human Lispro (Humalog) 12 units SC AC [facility] Last Admin: 10/23/16 17:01 Dose: 12 units Metoclopramide HCl (Reglan) 10 mg IVP ACHS [facility] Last Admin: 10/23/16 17:02 Dose: 10 mg Nicotine (Nicoderm Cq) 1 patch TD DAILY [facility] Last Admin: 10/23/16 09:33 Dose: 1 patch Ujmuv-9-Oevq Ethyl Esters (Lovaza) 2 gm PO BID [facility] Last Admin: 10/23/16 17:02 Dose: 2 gm Ondansetron HCl (Zofran Inj) 4 mg IVP Q4H PRN PRN Reason: Nausea/Vomiting Pantoprazole Sodium (Protonix Inj) 40 mg IVP Q12 [facility] Last Admin: 10/23/16 09:32 Dose: 40 mg - Labs Labs: 10/23/16 06:30 10/23/16 06:30 PT 12.0 Seconds (9.9-11.8) H 10/21/16 00:15 INR 1.11 (0.93-1.08) H 10/21/16 00:15 APTT 26.9 Seconds (23.7-30.8) 10/21/16 00:15
[2016-10-23] MEDS ORDERED: Insulin Regular 1 UNITS/0.01 ML ML SC STA (21:48)
[2016-10-23] MEDS ORDERED: Insulin Detemir 100 units/ml Vial (Levemir) SC SCH (22:00)
[2016-10-24] MEDS: Albuterol-Ipratrop 3 mg / 0.5 (3 ml) UD IH SCH ×2 (01:27→07:19)
[2016-10-24 07:11] LABS: ADD MANUAL DIFF? NO; BASO # 0.02 K/mm3 (0.0-2.0); BASO % 0.3 % (0.0-3.0); EOS # 0.1 (0.0-0.7); EOS % 1.2 % (1.5-5.0); GRAN # 4.47 (1.4-6.5); LYMPH # 2.1 (1.2-3.4); LYMPH % 28.1 % (22.0-35.0); MEAN CELL VOLUME 77.1 fL (80.0-105.0); MEAN CORPUSCULAR HEMOGLOBIN 28.8 pg (25.0-35.0); MEAN CORPUSCULAR HGB CONC 37.3 g/dl (31.0-37.0); MEAN PLATELET VOLUME 11.9 fl (7.0-11.0); MONO # 0.7 (0.1-0.6); MONO % 9.4 % (1.0-6.0); PLATELET COUNT 168 10^3/uL (120.0-450.0); RED CELL DISTRIBUTION WIDTH 12.8 % (11.5-14.5); WHITE BLOOD COUNT 7.3 10^3/ul (4.5-11.0)
[2016-10-24] MEDS ORDERED: Pantoprazole 40 mg EC Tab PO SCH (07:30)
[2016-10-24 07:45] LABS: ALB/GLOB RATIO 1.4 (1.1-1.8); ALKALINE PHOSPHATASE 89 U/L (38-133); ALT/SGPT 28 U/L (7-56); AST/SGOT 30 U/L (15-59); BILIRUBIN,DIRECT 0.4 mg/dL (0.0-0.4); BILIRUBIN,TOTAL 0.9 mg/dL (0.2-1.3); BLOOD UREA NITROGEN 10 mg/dL (7-21); CALCIUM 9.2 mg/dL (8.4-10.5); CARBON DIOXIDE 31 mmol/L (21-33); CHLORIDE 99 mmol/L (98-107); GFR AFRICAN-AMERICAN > 60; GLUCOSE,RANDOM 160 mg/dL (70-110); MAGNESIUM 2.1 mg/dL (1.7-2.2); PHOSPHOROUS 2.3 mg/dL (2.5-4.5); POTASSIUM 3.5 mmol/L (3.6-5.0); SODIUM 137 mmol/L (132-148); TOTAL PROTEIN 6.7 g/dL (5.8-8.3)
[2016-10-24] MEDS: Potassium Chloride 40 mEq/30 ml LIQ UD PO SCH ×2 (08:26→09:44)
[2016-10-24] MEDS: Insulin Lispro (humaLOG) LOW Coverage SC SCH (08:30)
[2016-10-24] MEDS: Insulin Lispro 1 UNITS/0.01 ML SC SCH (08:33)
[2016-10-24 08:41] VITALS: BP 140/83; PULSE 65; RESP 20; TEMP 98.1; O2SAT 96
[2016-10-24] MEDS: Enoxaparin 40 mg Syringe SC SCH (09:44)
[2016-10-24] MEDS: Omega-3-Acid Ethyl Esters 1 GM Cap PO SCH (09:45)
[2016-10-24] MEDS: Sodium Chloride 0.45% 1,000 ML IV SCH (09:46)
[2016-10-24] MEDS ORDERED: Potassium & Sodium Phosphate PO SCH (10:00)
--- NOTE | 2016-10-24 16:29 | PN ---
DATE: 10/24/2016 ROOM: 560 This is a 36-year-old male with recent uncontrolled type 1 insulin-dependent diabetes, presenting her e with diabetic ketoacidosis and dehydration and has since then improved clinically and metabolically as noted thereof. The latest chemistry showed a BUN of 10, sodium 137, potassium 3.5, chloride 99, CO2 of 31, and glucose 160. His hemoglobin A1c is still pending at this time. So, for now, as he is scheduled for discharge, we will continue the same premixed insulin regimen wit h Humalog given as 12 units subQ t.i.d. before meals and basal insulin given as Levemir at 30 units s ubQ at bedtime daily as given. Would prefer this basal and bolus insulin drug combination than the p remixed insulin regimen which he came in with from outside. This is a more physiologic basal and elise us coverage regimen to optimize his metabolic control. Would recommend actually an insulin pump, whi ch is even a more optimal way of controlling and optimizing his metabolic control, especially as he i s a type 1 diabetic. We will follow. Alejandra Mejia MD cc: [id number] TT: 10/24/2016 16:28:54 Confirmation # [id number] Dictation # [id number]
[2016-10-24 18:46] LABS: GLYCOMARK(R) 1.4 mcg/mL (7.3-36.6)
--- NOTE | 2016-10-24 22:49 | DS ---
The patient is seen in room 560, bed 2. The patient is out of bed to chair. The patient desperately wants to leave the hospital, wants to go home. The patient's overnight nurse's notes were reviewed. The patient did not have any adverse ev ent overnight. The patient was seen by the case management and director of social work. PHYSICAL EXAMINATION: VITAL SIGNS: T-max 98.1, pulse 65, blood pressure 140/83, respirations 20, O2 sat 96%. HEAD: Normocephalic, atraumatic. HEENT: Shows pink conjunctivae, anicteric sclerae. No oropharyngeal lesion. NECK: No neck rigidity. CHEST: Kyphosis. LUNGS: Shows no rales, crackles, or wheezing. CARDIOVASCULAR: S1, S2, regular rhythm. No audible murmur, gallop, or rub. ABDOMEN: Soft, positive bowel sounds. GENITALIA: Male. RECTAL: Deferred. EXTREMITIES: Shows no pitting edema, no calf tenderness, no Homans sign. MUSCULOSKELETAL: Shows a body mass index of 23. NEUROLOGIC: Cranial nerves II-XII intact. GAIT: Independent. VASCULAR: Palpable pulses. PSYCHIATRIC: Negative for anxiety. Negative for depression, Negative for suicidal or homicidal idea tion. VASCULAR: Palpable pulses. DIAGNOSTICS: 10/24: Sodium 137, potassium 3.5, which is low, chloride 99, CO2 31, anion gap 11, BUN 10, creatinine 0.7, GFR greater than 60, glucose 160, calcium 9.2, magnesium 2.1. LFTs are normal. WBC 7.3, hemoglobin and hematocrit 13.8 and 37, platelets 168. Microbiology cultures low. Blood cu ltures negative. No beta strep noted. MRSA nondetected. FINAL IMPRESSION, PLAN, AND DISCHARGE DIAGNOSES: 1. Acute diabetic ketoacidosis with increased anion gap metabolic acidosis and lactic acidosis. 2. Severe dehydration with spurious hyponatremia. 3. Systemic inflammatory response syndrome with leukocytosis, tachycardia. 4. Insulin-requiring type 1 diabetes mellitus with diabetic neuropathy. 5. Asymptomatic bradycardia. 6. Questionable transient hypertension. 7. Leukocytosis with granulocytosis and bandemia. 8. Microcytic anemia. 9. Hypokalemia. 10. Status post nonhemolyzed hyperkalemia. 11. Hyponatremia. 12. Uncontrolled insulin-requiring type 1 diabetes mellitus with hemoglobin A1c of 9.2 and fructosami ne of 479. 13. Hyperuricemia. 14. Hypophosphatemia. 15. Dyslipidemia with hypertriglyceridemia and hypercholesterolemia. 16. Glycosuria with microscopic hematuria, bacteriuria. 17. History of nicotine, alcohol, and marijuana use. 18. Transient asymptomatic bradycardia. 19. Lactic acidosis with increased anion gap metabolic acidosis. 20. Early repolarization changes on the ECG. 21. Accessory spleen. 22. Nonspecific bilateral adrenal gland thickening, left more than the right. 23. Small hiatal hernia. 24. Colonic fecal stasis. 25. Colonic diverticulosis. 26. Degenerative joint disease of the spine. 27. Right apical pulmonary blebs with bibasilar atelectasis and left apical small granuloma. 28. Left upper lobe peripheral scarring. 29. Diabetic neuropathy. 30. History of possible noncompliance. 31. Hypochloremic hyponatremia. PLAN: At this time, patient has been cleared for discharge by all subspecialties. DISCHARGE MEDICATIONS: 1. Allopurinol 300 mg daily, #30 tablets. 2. Aspirin 81 daily, which patient is going to resume. 3. The patient is on Lipitor 20 mg daily. 4. Neurontin 300 mg twice a day. 5. The patient is discharged on Lantus 30 units at bedtime, with new prescription transmitted to the pharmacy. 6. Humulin 70/30, 25 units twice a day with breakfast and dinner. 7. The patient is to resume metformin 1000 mg twice a day. 8. The patient is also given Reglan 10 mg twice a day. 9. Nicotine patch 21 mg daily. 10. Lovaza 2 g twice a day. DISCHARGE INSTRUCTIONS. Discharge followup with Dr. Harmon and Dr. Burciaga within 1 week. DISCHARGE MEDICATIONS: As per updated ambulatory orders, transmitted the pharmacy. Copy of the diet to patient upon discharge. The patient was advised no alcohol, no smoking, no recreational drug use . Time spent in the entire discharge process more than 45 minutes. Sanjeev Burciaga MD cc: [id number] TT: 10/24/2016 22:48:56 ln
== END 2016-10-24 12:16 | disposition home or self-care (01) | DRG 637 ==
LOC: ED 16:18 → ERH 20:23 → CCU 23:05 → 5RNO 10-22 18:17
PROVIDERS: ADMIT Internal Medicine; ATTEND Internal Medicine
DX: E10.10 Type 1 diabetes mellitus with ketoacidosis without coma (principal); R65.11 Systemic inflammatory response syndrome (SIRS) of non-infectious origin with acute organ dysfunction; N17.9 Acute kidney failure, unspecified; D50.9 Iron deficiency anemia, unspecified; F17.210 Nicotine dependence, cigarettes, uncomplicated; I10 Essential (primary) hypertension; Q89.09 Congenital malformations of spleen; E87.1 Hypo-osmolality and hyponatremia; J98.11 Atelectasis; E83.39 Other disorders of phosphorus metabolism; E86.0 Dehydration; E87.5 Hyperkalemia; E10.42 Type 1 diabetes mellitus with diabetic polyneuropathy; E10.21 Type 1 diabetes mellitus with diabetic nephropathy; E87.6 Hypokalemia; E78.2 Mixed hyperlipidemia; R31.29 Other microscopic hematuria; K44.9 Diaphragmatic hernia without obstruction or gangrene; K57.30 Diverticulosis of large intestine without perforation or abscess without bleeding; K59.8 Other specified functional intestinal disorders; M47.9 Spondylosis, unspecified; F12.90 Cannabis use, unspecified, uncomplicated; R63.0 Anorexia; Z68.23 Body mass index [BMI] 23.0-23.9, adult; Z79.4 Long term (current) use of insulin; Z79.82 Long term (current) use of aspirin; Z91.19 Patient's noncompliance with other medical treatment and regimen